=== PATIENT | female | born 1995 | race Caucasian/White ===

== ENCOUNTER 2018-02-01 08:33 | Inpatient (IN) | payer SELFPAY ==
[2018-02-01] MEDS ORDERED: Sodium Chloride 0.9% 2.5 ML Syringe FLUSH PRN (08:52)
[2018-02-01] MEDS ORDERED: Water For Irrigation,Sterile 1,000 ML Container IRR PRN (08:52)
[2018-02-01] MEDS ORDERED: Tranexamic Acid 1,000 MG in Sodium Chloride 0.9% 100 ML IV PRN (08:52)
[2018-02-01] MEDS ORDERED: Methylergonovine 0.2 MG/1 ML Amp IM PRN (08:52)
[2018-02-01] MEDS ORDERED: Misoprostol 200 MCG Tab PO PRN (08:52)
[2018-02-01] MEDS ORDERED: Carboprost Tromethamine 250 MCG/1 ML Amp IM PRN (08:52)
[2018-02-01] MEDS ORDERED: Lidocaine 1% 50 ML MDV INJECT PRN (08:52)
[2018-02-01] MEDS ORDERED: Butorphanol 1 MG/ML SDV IVPUSH PRN (08:52)
[2018-02-01] MEDS ORDERED: Nalbuphine 10 MG/ML 10 ML MDV IVPUSH PRN (08:52)
[2018-02-01] MEDS ORDERED: Sodium Chloride 0.9% 10 ML Syringe FLUSH PRN (08:52)
[2018-02-01] MEDS ORDERED: Oxytocin/0.9 % Sodium Chloride 30 UNIT/500 ML BAG IV SCH (09:00)
[2018-02-01] MEDS ORDERED: Ampicillin 2 GM in Sodium Chloride 0.9% 100 ML IV ONE (09:15)
[2018-02-01] MEDS: Lactated Ringers 1,000 ML IV SCH ×3 (09:35→13:59)
[2018-02-01] MEDS ORDERED: Ropivacaine HCl/PF 100 ML ONE (11:00)
[2018-02-01] MEDS ORDERED: Ropivacaine 0.2% 2 MG/ML 20 ML SDV ONE (11:00)
--- NOTE | 2018-02-01 11:08 | PCM.PREANE ---
Preanesthetic Assessment - Anesthesia/Transfusion/Family Hx Anesthesia History: No Prior Anesthesia Transfusion History: No Prior Transfusion(s) - Review of Systems General: No Symptoms Pulmonary: No Symptoms Cardiovascular: No Symptoms Gastrointestinal: Nausea, Vomiting Neurological: No Symptoms Other: Reports: None - Physical Assessment NPO Status Date: 02/01/18 NPO Status Time: 07:00 Pulse: 94 Blood Pressure: 129/76 Temperature: 98.6 F Height: 4 ft 11 in Weight: 128 lb ASA Class: 2 Mental Status: Alert & Oriented x3 Airway Class: Mallampati = 2 ROM/Head Extension: Full Lungs: Clear to Auscultation, Normal Respiratory Effort Cardiovascular: Regular Rate, Regular Rhythm - Lab Values: Laboratory Last Values WBC 10.43 K/uL (4.0-11.0) 02/01/18 09:25 RBC 4.43 M/uL (4.30-5.90) 02/01/18 09:25 Hgb 12.7 g/dL (12.0-16.0) 02/01/18 09:25 Hct 38.0 % (36.0-46.0) 02/01/18 09:25 MCV 85.8 fL (80.0-98.0) 02/01/18 09:25 MCH 28.7 pg (27.0-32.0) 02/01/18 09:25 MCHC 33.4 g/dL (31.0-37.0) 02/01/18 09:25 RDW Std Deviation 40.7 fl (28.0-62.0) 02/01/18 09:25 RDW Coeff of Gloria 14 % (11.0-15.0) 02/01/18 09:25 Plt Count 191 K/uL (150-400) 02/01/18 09:25 MPV 10.30 fL (7.40-12.00) 02/01/18 09:25 Hemoglobin A1c 4.9 % (4.5-6.2) 02/01/18 09:25 Blood Type A POSITIVE 02/01/18 09:25 Antibody Screen NEGATIVE 02/01/18 09:25 - Allergies Allergies/Adverse Reactions: Allergies Allergy/AdvReac Type Severity Reaction Status Date / Time No Known Allergies Allergy Verified 02/01/18 09:08 - Blood Blood Available: No Product(s) Available: None - Anesthesia Plan Free Text/Narrative:: Labor Epidural - will not use any narcotic since hx of + toxicology and pt has not given a urine sample today - nurse will be collecting when bright catheter is placed 20 Ga IV placed to R Upper bicep d/t difficulty getting IV access for fluid bolus - Acknowledgements Anesthesia Type Planned: Epidural Pt an Appropriate Candidate for the Planned Anesthesia: Yes Alternatives and Risks of Anesthesia Discussed w Pt/Guardian: Yes Pt/Guardian Understands and Agrees with Anesthesia Plan: Yes PreAnesthesia Questionnaire Gastrointestinal History: Reports: GERD 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 - SUBSTANCE USE Smoking Status *Q: Never Smoker Tobacco Use Within Last Twelve Months: No Second Hand Smoke Exposure: Yes Recreational Drug Use History: Yes Recreational Drug Type: Reports: Marijuana/Hashish, Other (see below) - HOME MEDS Home Medications: Home Meds . [No Known Home Meds] 02/01/18 [History] - CURRENT (IN HOUSE) MEDS Current Meds: Current Medications Butorphanol Tartrate (Stadol) 1 mg IVPUSH Q1H PRN PRN Reason: Pain Carboprost Tromethamine (Hemabate Ds) 250 mcg IM ASDIRECTED PRN PRN Reason: Post Hemorrhage Tranexamic Acid 1,000 mg/ (Sodium Chloride) 110 mls @ 660 mls/hr IV ONETIME PRN PRN Reason: Bleeding Lactated Ringer's (Ringers, Lactated) 1,000 mls @ 150 mls/hr IV ASDIRECTED [facility] Last Admin: 02/01/18 09:35 Dose: 999 mls/hr Oxytocin/Sodium Chloride (Oxytocin 30 Unit/500 Ml-Ns) 30 unit in 500 mls @ 999 mls/hr IV TITRATE [facility] Ampicillin Sodium 1 gm/ Sodium (Chloride) 50 mls @ 100 mls/hr IV Q4H [facility] Lidocaine HCl (Xylocaine 1%) 50 ml INJECT .ONCE PRN PRN Reason: Laceration repair Methylergonovine Maleate (Methergine) 0.2 mg IM ASDIRECTED PRN PRN Reason: Post Hemorrhage Misoprostol (Cytotec) 200 mcg PO .ONCE PRN PRN Reason: Post Hemorrhage Nalbuphine HCl (Nubain) 10 mg IVPUSH Q1H PRN PRN Reason: Pain (severe 7-10) Sodium Chloride (Saline Flush) 10 ml FLUSH ASDIRECTED PRN PRN Reason: Keep Vein Open Sodium Chloride (Saline Flush) 2.5 ml FLUSH ASDIRECTED PRN PRN Reason: Keep Vein Open Sterile Water (Sterile Water For Irrigation) 1,000 ml IRR ASDIRECTED PRN PRN Reason: delivery Discontinued Medications Ampicillin Sodium 2 gm/ Sodium (Chloride) 100 mls @ 200 mls/hr IV ONETIME ONE Stop: 02/01/18 09:44 Last Admin: 02/01/18 09:40 Dose: 200 mls/hr Ropivacaine (Naropin 0.2%) Confirm Administered Dose 100 mls @ as directed .ROUTE .STK-MED ONE Stop: 02/01/18 11:01 Ropivacaine (Naropin 0.2%) Confirm Administered Dose 20 ml .ROUTE .STK-MED ONE Stop: 02/01/18 11:01
[2018-02-01] MEDS ORDERED: Ampicillin 1 GM in Sodium Chloride 0.9% 50 ML IV SCH (13:15)
--- NOTE | 2018-02-01 15:21 | PCM.DEL ---
L & D Note - General Info Date of Service: 02/01/18 - Delivery Note Labor: Spontaneous Delivery Outcome: Livebirth Delivery Mode: Vacuum Extraction Presentation: Left Occiput Anterior (GARO) Anesthesia Type: Epidural Laceration: 1st Degree, Vaginal Suture type: Vicryl Suture size: 3-0 Placenta: Intact, Spontaneous Cord: 3 Vessels Score 1 min: 8 Score 5 min: 9 Delivery Comments (Free Text/Narrative):: Dictation [id number] - General Info Date of Service: 02/01/18 - Patient Data Vitals - Most Recent: Last Vital Signs Temp 37.0 C 02/01/18 11:08 Pulse 94 02/01/18 11:08 Resp BP 129/76 02/01/18 11:08 Pulse Ox Weight - Most Recent: 58.06 kg Lab Results Last 24 Hours: Laboratory Results - last 24 hr 02/01/18 02/01/18 02/01/18 Range/Units 09:25 09:25 09:25 WBC 10.43 (4.0-11.0) K/uL RBC 4.43 (4.30-5.90) M/uL Hgb 12.7 (12.0-16.0) g/dL Hct 38.0 (36.0-46.0) % MCV 85.8 (80.0-98.0) fL MCH 28.7 (27.0-32.0) pg MCHC 33.4 (31.0-37.0) g/dL RDW Std Deviation 40.7 (28.0-62.0) fl RDW Coeff of Gloria 14 (11.0-15.0) % Plt Count 191 (150-400) K/uL MPV 10.30 (7.40-12.00) fL Hemoglobin A1c 4.9 (4.5-6.2) % Urine Opiates Screen (NEGATIVE) Ur Oxycodone Screen (NEGATIVE) Urine Methadone Screen (NEGATIVE) Ur Barbiturates Screen (NEGATIVE) Ur Phencyclidine Scrn (NEGATIVE) Ur Amphetamine Screen (NEGATIVE) U Methamphetamines Scrn (NEGATIVE) U Benzodiazepines Scrn (NEGATIVE) U Cocaine Metab Screen (NEGATIVE) U Marijuana (THC) Screen (NEGATIVE) Blood Type A POSITIVE Antibody Screen NEGATIVE 02/01/18 Range/Units 11:39 WBC (4.0-11.0) K/uL RBC (4.30-5.90) M/uL Hgb (12.0-16.0) g/dL Hct (36.0-46.0) % MCV (80.0-98.0) fL MCH (27.0-32.0) pg MCHC (31.0-37.0) g/dL RDW Std Deviation (28.0-62.0) fl RDW Coeff of Gloria (11.0-15.0) % Plt Count (150-400) K/uL MPV (7.40-12.00) fL Hemoglobin A1c (4.5-6.2) % Urine Opiates Screen POSITIVE (NEGATIVE) Ur Oxycodone Screen NEGATIVE (NEGATIVE) Urine Methadone Screen NEGATIVE (NEGATIVE) Ur Barbiturates Screen NEGATIVE (NEGATIVE) Ur Phencyclidine Scrn NEGATIVE (NEGATIVE) Ur Amphetamine Screen NEGATIVE (NEGATIVE) U Methamphetamines Scrn NEGATIVE (NEGATIVE) U Benzodiazepines Scrn NEGATIVE (NEGATIVE) U Cocaine Metab Screen NEGATIVE (NEGATIVE) U Marijuana (THC) Screen NEGATIVE (NEGATIVE) Blood Type Antibody Screen Med Orders - Current: Current Medications Butorphanol Tartrate (Stadol) 1 mg IVPUSH Q1H PRN PRN Reason: Pain Carboprost Tromethamine (Hemabate Ds) 250 mcg IM ASDIRECTED PRN PRN Reason: Post Hemorrhage Tranexamic Acid 1,000 mg/ (Sodium Chloride) 110 mls @ 660 mls/hr IV ONETIME PRN PRN Reason: Bleeding Lactated Ringer's (Ringers, Lactated) 1,000 mls @ 150 mls/hr IV ASDIRECTED [facility] Last Admin: 02/01/18 13:59 Dose: 150 mls/hr Oxytocin/Sodium Chloride (Oxytocin 30 Unit/500 Ml-Ns) 30 unit in 500 mls @ 999 mls/hr IV TITRATE [facility] Ampicillin Sodium 1 gm/ Sodium (Chloride) 50 mls @ 100 mls/hr IV Q4H [facility] Last Admin: 02/01/18 14:00 Dose: 100 mls/hr Lidocaine HCl (Xylocaine 1%) 50 ml INJECT .ONCE PRN PRN Reason: Laceration repair Methylergonovine Maleate (Methergine) 0.2 mg IM ASDIRECTED PRN PRN Reason: Post Hemorrhage Misoprostol (Cytotec) 200 mcg PO .ONCE PRN PRN Reason: Post Hemorrhage Nalbuphine HCl (Nubain) 10 mg IVPUSH Q1H PRN PRN Reason: Pain (severe 7-10) Sodium Chloride (Saline Flush) 10 ml FLUSH ASDIRECTED PRN PRN Reason: Keep Vein Open Sodium Chloride (Saline Flush) 2.5 ml FLUSH ASDIRECTED PRN PRN Reason: Keep Vein Open Sterile Water (Sterile Water For Irrigation) 1,000 ml IRR ASDIRECTED PRN PRN Reason: delivery Discontinued Medications Ampicillin Sodium 2 gm/ Sodium (Chloride) 100 mls @ 200 mls/hr IV ONETIME ONE Stop: 02/01/18 09:44 Last Admin: 02/01/18 09:40 Dose: 200 mls/hr Ropivacaine (Naropin 0.2%) Confirm Administered Dose 100 mls @ as directed .ROUTE .STK-MED ONE Stop: 02/01/18 11:01 Ropivacaine (Naropin 0.2%) Confirm Administered Dose 20 ml .ROUTE .STK-MED ONE Stop: 02/01/18 11:01 - Problem List Review Problem List Initiated/Reviewed/Updated: Yes - My Orders Last 24 Hours: My Active Orders 02/01/18 08:52 Patient Status [ADT] Routine May Shower [RC] ASDIRECTED Notify Provider [RC] PRN Up ad Krystin [RC] ASDIRECTED Butorphanol [Stadol] 1 mg IVPUSH Q1H PRN Carboprost Tromethamine [Hemabate DS] 250 mcg IM ASDIRECTED PRN Lidocaine 1% [Xylocaine 1%] 50 ml INJECT .ONCE PRN Methylergonovine [Methergine] 0.2 mg IM ASDIRECTED PRN Misoprostol [Cytotec] 200 mcg PO .ONCE PRN Nalbuphine [Nubain] 10 mg IVPUSH Q1H PRN Sodium Chloride 0.9% [Saline Flush] 10 ml FLUSH ASDIRECTED PRN Sodium Chloride 0.9% [Saline Flush] 2.5 ml FLUSH ASDIRECTED PRN Tranexamic Acid [Cyklokapron] 1,000 mg Sodium Chloride 0.9% [Normal Saline] 100 ml IV ONETIME Water For Irrigation,Sterile [Sterile Water for Irrigation] 1,000 ml IRR ASDIRECTED PRN Scalp Electrode [WOMSER] Per Unit Routine Peripheral IV Insertion Adult [OM.PC] Routine 02/01/18 09:00 GBS [CULTURE GROUP B STREP] [RM] Routine Lactated Ringers [Ringers, Lactated] 1,000 ml IV ASDIRECTED Oxytocin/0.9 % Sodium Chloride [Oxytocin 30 Unit/500 ML-NS] 30 unit in 500 ml IV TITRATE 02/01/18 09:16 Consult to Commercial Management Accountant [CONS] Routine 02/01/18 13:15 Ampicillin 1 gm Sodium Chloride 0.9% [Normal Saline] 50 ml IV Q4H
[2018-02-01] MEDS ORDERED: Ibuprofen 400 MG Tab PO PRN (15:25)
[2018-02-01] MEDS ORDERED: Docusate Sodium 100 MG Cap PO PRN (15:25)
[2018-02-01] MEDS ORDERED: Benzocaine/Menthol 20%-0.5% Spray 78 GM Cannister TOP PRN (15:25)
[2018-02-01] MEDS ORDERED: Lanolin 100% Cream 7 GM Tube TOP PRN (15:25)
[2018-02-01] MEDS ORDERED: Aluminum Hydroxide/Magnesium Hydroxide/Simethicone Susp 30 ML Cup PO PRN (15:25)
[2018-02-01] MEDS ORDERED: Bisacodyl 10 MG Supp RECTAL PRN (15:25)
[2018-02-01] MEDS ORDERED: Witch Hazel Medicated Pads 40/Jar TOP PRN (15:25)
[2018-02-01] MEDS ORDERED: oxyCODONE 5 MG Tab PO PRN (15:25)
[2018-02-01] MEDS ORDERED: Acetaminophen 500 MG Tab PO PRN ×2 (15:25)
--- NOTE | 2018-02-01 18:23 | OR ---
SURGEON: Ofelia Escalante M.D. DATE OF PROCEDURE: 02/01/2018 PREOPERATIVE DIAGNOSES: 1. 39 and 2 week intrauterine . 2. Active labor. 3. Limited care. 4. Group B strep unknown. 5. UDS positive for opiates. 6. bradycardia. POSTOPERATIVE DIAGNOSES: 1. 39 and 2 week intrauterine . 2. Active labor. 3. Limited care. 4. Group B strep unknown. 5. UDS positive for opiates. 6. bradycardia. PROCEDURE: Vacuum-assisted vaginal delivery with first-degree right-sided vaginal laceration repair. ESTIMATED BLOOD LOSS: 300 mL. ANESTHESIA: Epidural. FINDINGS: Viable male, scores 8 at 1 minute, 9 at 5 minutes, weight is pending. Spontaneous delivery, intact placenta, three-vessel cord, clear amniotic fluid. DISPOSITION: The patient in LDRP, infant to nursery. PROCEDURE IN DETAIL: Ofelia is a 22-year-old primigravida at 39 and 2 weeks' gestation, who presents this morning with regular contractions at 6:30 a.m. She presented shortly after 8:30 a.m. She was found to be 5 cm, 90% effaced, zero station, cephalic presentation. The patient had very limited care. She had a visit at 7 weeks and 25 weeks gestational age. She did have labs and ultrasounds done at this visit however. She has group beta strep unknown. Her 50 g glucose tolerance test was elevated at 158. The patient was admitted and routine labs were drawn as well as urine drug screen and a glycosylated hemoglobin. The patient underwent IV hydration, was requested regional anesthesia from epidural, underwent this satisfactorily, became more comfortable, continued to progress. She received ampicillin prophylaxis for group B beta strep unknown. Group B beta strep culture is pending. heart tones were in the 130s with variability. The patient progressed through the early afternoon, had spontaneous rupture of membranes. At approximately 1:00 p.m., clear fluid was noted. At approximately 3:00 p.m., the patient was found to be complete, 100% effaced, and +3 station with recurrent prolonged variable deceleration to the 80s. She was placed in knee-chest position and presented for delivery. Upon my arrival, heart tones were back in the 110 to 120s. The patient was placed in modified dorsal lithotomy position, was prepped and draped in the usual aseptic manner. Began pushing efforts, was able to deliver to +4 station. However, the heart tones were in the 70s to 80s and were not returning to baseline. Therefore, discussed with Ofelia the possibility of proceeding with vacuum-assisted vaginal delivery. The fetus is GARO. Estimated weight is 3000 g. Bladder has been drained. sutures were palpated. The patient's fetus felt to be GARO with a sagittal midline, posteriorly palpated. Risks of procedure discussed with her including the possibility for increased risk due to mother for a vaginal laceration for a for scalp bruising and more rarely intracranial bleeding. The patient and father of the baby voiced her understanding and agreed to proceed with vacuum-assisted vaginal delivery. Therefore, Mityvac was gently placed after palpating suture lines, with the next contraction, was able to insufflate to the green zone. With pressure applied, was able to deliver infant's head atraumatically, spontaneously, vacuum was released. The anterior shoulder push, remaining body was delivered without difficulty. The 's oropharynx and nares bulb suctioned. Infant had good tone, began crying spontaneously. The oropharynx and nares bulb suctioned, cord was clamped x2 and cut. Infant was handed off to attending physician, Dr. Kaminski. Cord arterial, cord venous, cord blood sampling obtained. Light pressure was applied while the placenta was delivered spontaneously intact. Vigorous fundal uterine massage was then applied while 30 units of Pitocin delivered in 500 mL of IV fluid. Upon inspection of cervix, vaginal sidewalls, and perineum, there was found to be a right vaginal laceration, first-degree, was repaired using 3-0 Vicryl in the usual fashion. Hemostasis appeared evident. Sponge count and needle count were correct. The patient tolerated the procedure well. She will remain in LDRP. Infant in nursery. KATHY / CHACHA /[id number] DESIREE
--- NOTE | 2018-02-02 06:25 | PCM48HPAN ---
Post Anesthesia Note - EVALUATION WITHIN 48HRS OF ANESTHETIC Vital Signs in Normal Range: Yes Patient Participated in Evaluation: Yes Respiratory Function Stable: Yes Airway Patent: Yes Cardiovascular Function Stable: Yes Hydration Status Stable: Yes Pain Control Satisfactory: Yes Nausea and Vomiting Control Satisfactory: Yes Mental Status Recovered: Yes Pulse Rate: 94 Resp Rate: 18 Temperature: 98.6 F Blood Pressure: 129/76
--- NOTE | 2018-02-02 07:51 | PCM.PNPP ---
- General Info Date of Service: 02/02/18 Functional Status: Reports: Pain Controlled, Tolerating Diet, Ambulating, Urinating - Review of Systems General: Reports: Fatigue. Denies: Fever, Weakness Pulmonary: Denies: Shortness of Breath Cardiovascular: Denies: Chest Pain, Palpitations, Lightheadedness Gastrointestinal: Reports: Flatus. Denies: Nausea, Vomiting Genitourinary: Denies: Flank Pain Skin: Reports: No Symptoms Psychiatric: Reports: No Symptoms - General Info Date of Service: 02/02/18 - Patient Data Vital Signs - Most Recent: Last Vital Signs Temp 37.0 C 02/02/18 06:25 Pulse 94 02/02/18 06:25 Resp 18 02/02/18 06:25 BP 129/76 02/02/18 06:25 Pulse Ox 96 02/02/18 04:36 Weight - Most Recent: 58.06 kg Lab Results - Last 24 Hours: Laboratory Results - last 24 hr 02/01/18 02/01/18 02/01/18 Range/Units 09:25 09:25 09:25 WBC 10.43 (4.0-11.0) K/uL RBC 4.43 (4.30-5.90) M/uL Hgb 12.7 (12.0-16.0) g/dL Hct 38.0 (36.0-46.0) % MCV 85.8 (80.0-98.0) fL MCH 28.7 (27.0-32.0) pg MCHC 33.4 (31.0-37.0) g/dL RDW Std Deviation 40.7 (28.0-62.0) fl RDW Coeff of Gloria 14 (11.0-15.0) % Plt Count 191 (150-400) K/uL MPV 10.30 (7.40-12.00) fL Cord ABG pH (7.18-7.38) Cord ABG Base Excess (-10--2) Cord VBG pH (7.25-7.45) Cord VBG Base Excess (-10--2) Hemoglobin A1c 4.9 (4.5-6.2) % Urine Opiates Screen (NEGATIVE) Ur Oxycodone Screen (NEGATIVE) Urine Methadone Screen (NEGATIVE) Ur Barbiturates Screen (NEGATIVE) Ur Phencyclidine Scrn (NEGATIVE) Ur Amphetamine Screen (NEGATIVE) U Methamphetamines Scrn (NEGATIVE) U Benzodiazepines Scrn (NEGATIVE) U Cocaine Metab Screen (NEGATIVE) U Marijuana (THC) Screen (NEGATIVE) Blood Type A POSITIVE Antibody Screen NEGATIVE 02/01/18 02/01/18 02/02/18 Range/Units 11:39 14:54 05:22 WBC (4.0-11.0) K/uL RBC (4.30-5.90) M/uL Hgb 9.6 L (12.0-16.0) g/dL Hct 29.0 L (36.0-46.0) % MCV (80.0-98.0) fL MCH (27.0-32.0) pg MCHC (31.0-37.0) g/dL RDW Std Deviation (28.0-62.0) fl RDW Coeff of Gloria (11.0-15.0) % Plt Count (150-400) K/uL MPV (7.40-12.00) fL Cord ABG pH 7.276 (7.18-7.38) Cord ABG Base Excess -3 (-10--2) Cord VBG pH 7.295 (7.25-7.45) Cord VBG Base Excess -3 (-10--2) Hemoglobin A1c (4.5-6.2) % Urine Opiates Screen POSITIVE (NEGATIVE) Ur Oxycodone Screen NEGATIVE (NEGATIVE) Urine Methadone Screen NEGATIVE (NEGATIVE) Ur Barbiturates Screen NEGATIVE (NEGATIVE) Ur Phencyclidine Scrn NEGATIVE (NEGATIVE) Ur Amphetamine Screen NEGATIVE (NEGATIVE) U Methamphetamines Scrn NEGATIVE (NEGATIVE) U Benzodiazepines Scrn NEGATIVE (NEGATIVE) U Cocaine Metab Screen NEGATIVE (NEGATIVE) U Marijuana (THC) Screen NEGATIVE (NEGATIVE) Blood Type Antibody Screen Med Orders - Current: Current Medications Acetaminophen (Tylenol Extra Strength) 500 mg PO Q4H PRN PRN Reason: Pain Acetaminophen (Tylenol Extra Strength) 1,000 mg PO Q4H PRN PRN Reason: Pain Last Admin: 02/02/18 00:39 Dose: 1,000 mg Al Hydroxide/Mg Hydroxide (Mag-Al Plus) 30 ml PO Q8H PRN PRN Reason: Heartburn Benzocaine/Menthol (Dermoplast Pain Relief 20%-0.5% [place]) 78 gm TOP ASDIRECTED PRN PRN Reason: Perineal Comfort Measure Bisacodyl (Dulcolax) 10 mg RECTAL .ONCE PRN PRN Reason: Constipation Carboprost Tromethamine (Hemabate Ds) 250 mcg IM ASDIRECTED PRN PRN Reason: Post Hemorrhage Docusate Sodium (Colace) 100 mg PO BID PRN PRN Reason: Constipation Emollient Ointment (Lansinoh Hpa) 0 gm TOP ASDIRECTED PRN PRN Reason: Sore Nipples Tranexamic Acid 1,000 mg/ (Sodium Chloride) 110 mls @ 660 mls/hr IV ONETIME PRN PRN Reason: Bleeding Lactated Ringer's (Ringers, Lactated) 1,000 mls @ 150 mls/hr IV ASDIRECTED [facility] Last Admin: 02/01/18 13:59 Dose: 150 mls/hr Oxytocin/Sodium Chloride (Oxytocin 30 Unit/500 Ml-Ns) 30 unit in 500 mls @ 999 mls/hr IV TITRATE [facility] Ibuprofen (Motrin) 400 mg PO Q4H PRN PRN Reason: Pain Ibuprofen (Motrin) 800 mg PO Q6H PRN PRN Reason: Pain Lidocaine HCl (Xylocaine 1%) 50 ml INJECT .ONCE PRN PRN Reason: Laceration repair Methylergonovine Maleate (Methergine) 0.2 mg IM ASDIRECTED PRN PRN Reason: Post Hemorrhage Misoprostol (Cytotec) 200 mcg PO .ONCE PRN PRN Reason: Post Hemorrhage Oxycodone HCl (Oxycodone) 5 mg PO Q2H PRN PRN Reason: Pain Sodium Chloride (Saline Flush) 10 ml FLUSH ASDIRECTED PRN PRN Reason: Keep Vein Open Sodium Chloride (Saline Flush) 2.5 ml FLUSH ASDIRECTED PRN PRN Reason: Keep Vein Open Witch Akanksha (Tucks) 1 pad TOP ASDIRECTED PRN PRN Reason: comfort care Discontinued Medications Butorphanol Tartrate (Stadol) 1 mg IVPUSH Q1H PRN PRN Reason: Pain Ampicillin Sodium 2 gm/ Sodium (Chloride) 100 mls @ 200 mls/hr IV ONETIME ONE Stop: 02/01/18 09:44 Last Admin: 02/01/18 09:40 Dose: 200 mls/hr Ampicillin Sodium 1 gm/ Sodium (Chloride) 50 mls @ 100 mls/hr IV Q4H [facility] Last Admin: 02/01/18 14:00 Dose: 100 mls/hr Ropivacaine (Naropin 0.2%) Confirm Administered Dose 100 mls @ as directed .ROUTE .STK-MED ONE Stop: 02/01/18 11:01 Nalbuphine HCl (Nubain) 10 mg IVPUSH Q1H PRN PRN Reason: Pain (severe 7-10) Ropivacaine (Naropin 0.2%) Confirm Administered Dose 20 ml .ROUTE .STK-MED ONE Stop: 02/01/18 11:01 Sterile Water (Sterile Water For Irrigation) 1,000 ml IRR ASDIRECTED PRN PRN Reason: delivery - Infant Interaction Infant Disposition, : [place] in Room with Family Support Person: Mother - Recovery Exam Fundal Tone: Firm Fundal Level: At Umbilicus Fundal Placement: Midline Lochia Amount: Scant Lochia Color: Rubra/Red Perineum Description: Intact, Minimal Bruising/Swelling Bladder Status: Voiding Urinary Elimination: Voided - Exam General: Alert, Oriented Lungs: Normal Respiratory Effort Cardiovascular: Regular Rate, Regular Rhythm GI/Abdominal Exam: Normal Bowel Sounds, Soft Extremities: Pedal Edema (trace). No: Toney's Sign Skin: Warm, Dry, Intact Psy/Mental Status: Alert, Normal Affect, Normal Mood - Problem List & Annotations (1) Vacuum extraction, delivered, current hospitalization SNOMED Code(s): 949783483 Code(s): O66.5 - ATTEMPTED APPLICATION OF VACUUM EXTRACTOR AND FORCEPS Status: Acute Current Visit: Yes - Problem List Review Problem List Initiated/Reviewed/Updated: Yes - My Orders Last 24 Hours: My Active Orders 02/01/18 08:52 Patient Status [ADT] Routine May Shower [RC] ASDIRECTED Notify Provider [RC] PRN Up ad Krystin [RC] ASDIRECTED Carboprost Tromethamine [Hemabate DS] 250 mcg IM ASDIRECTED PRN Lidocaine 1% [Xylocaine 1%] 50 ml INJECT .ONCE PRN Methylergonovine [Methergine] 0.2 mg IM ASDIRECTED PRN Misoprostol [Cytotec] 200 mcg PO .ONCE PRN Sodium Chloride 0.9% [Saline Flush] 10 ml FLUSH ASDIRECTED PRN Sodium Chloride 0.9% [Saline Flush] 2.5 ml FLUSH ASDIRECTED PRN Tranexamic Acid [Cyklokapron] 1,000 mg Sodium Chloride 0.9% [Normal Saline] 100 ml IV ONETIME Peripheral IV Insertion Adult [OM.PC] Routine 02/01/18 09:00 GBS [CULTURE GROUP B STREP] [RM] Routine Lactated Ringers [Ringers, Lactated] 1,000 ml IV ASDIRECTED Oxytocin/0.9 % Sodium Chloride [Oxytocin 30 Unit/500 ML-NS] 30 unit in 500 ml IV TITRATE 02/01/18 09:16 Consult to Patient Relations Specialist [CONS] Routine 02/01/18 15:25 Patient Status [ADT] Routine May Shower [RC] ASDIRECTED Up ad Krystin [RC] ASDIRECTED Vital Signs [RC] PER UNIT ROUTINE Acetaminophen [Tylenol Extra Strength] 1,000 mg PO Q4H PRN Acetaminophen [Tylenol Extra Strength] 500 mg PO Q4H PRN Alum Hydrox/Mag Hydrox/Simeth [Mag-Al Plus] 30 ml PO Q8H PRN Benzocaine/Menthol [Dermoplast Pain Relief 20%-0.5% [place]] 78 gm TOP ASDIRECTED PRN Bisacodyl [Dulcolax] 10 mg RECTAL .ONCE PRN Docusate Sodium [Colace] 100 mg PO BID PRN Ibuprofen [Motrin] 400 mg PO Q4H PRN Ibuprofen [Motrin] 800 mg PO Q6H PRN Lanolin [Lansinoh HPA] See Dose Instructions TOP ASDIRECTED PRN Witch Akanksha [Tucks] 1 pad TOP ASDIRECTED PRN oxyCODONE 5 mg PO Q2H PRN Assess Lochia [WOMSER] Per Unit Routine Assess Uterine Involution [WOMSER] Per Unit Routine Peripheral IV Discontinue [OM.PC] Routine 02/01/18 15:26 Ice Therapy [OM.PC] Per Unit Routine Perineal Care [OM.PC] Per Unit Routine Sitz Bath [OM.PC] Per Unit Routine 02/01/18 Dinner Regular Diet [DIET] - Assessment Assessment:: PPD 1 status post VAVD Opioid abuse/dependence - Plan Plan:: Monitor today, VS and labs are stable. She has very few withdrawal symptoms at this point, mostly difficulty sleeping. SS have been consulted. Patient is open to evaluation and potential treatment for opioid dependence. Continue PP cares.
[2018-02-02] MEDS: Ibuprofen 800 MG Tab PO PRN (12:49)
[2018-02-03] MEDS: Ibuprofen 800 MG Tab PO PRN (08:57)
--- NOTE | 2018-02-03 09:30 | PCM.PNPP ---
- General Info Date of Service: 02/03/18 Functional Status: Reports: Pain Controlled, Tolerating Diet, Ambulating, Urinating - Review of Systems General: Denies: Fever, Weakness, Fatigue Pulmonary: Denies: Shortness of Breath Cardiovascular: Denies: Chest Pain, Palpitations, Lightheadedness Gastrointestinal: Denies: Abdominal Pain, Nausea, Vomiting Genitourinary: Denies: Flank Pain Psychiatric: Reports: No Symptoms - General Info Date of Service: 02/03/18 - Patient Data Vital Signs - Most Recent: Last Vital Signs Temp 36.6 C 02/03/18 08:00 Pulse 68 02/03/18 08:00 Resp 18 02/03/18 08:00 BP 112/80 02/03/18 08:00 Pulse Ox 98 02/03/18 08:00 Weight - Most Recent: 58.06 kg Med Orders - Current: Current Medications Acetaminophen (Tylenol Extra Strength) 500 mg PO Q4H PRN PRN Reason: Pain Acetaminophen (Tylenol Extra Strength) 1,000 mg PO Q4H PRN PRN Reason: Pain Last Admin: 02/02/18 00:39 Dose: 1,000 mg Al Hydroxide/Mg Hydroxide (Mag-Al Plus) 30 ml PO Q8H PRN PRN Reason: Heartburn Benzocaine/Menthol (Dermoplast Pain Relief 20%-0.5% [place]) 78 gm TOP ASDIRECTED PRN PRN Reason: Perineal Comfort Measure Last Admin: 02/03/18 09:01 Dose: 1 canister Bisacodyl (Dulcolax) 10 mg RECTAL .ONCE PRN PRN Reason: Constipation Carboprost Tromethamine (Hemabate Ds) 250 mcg IM ASDIRECTED PRN PRN Reason: Post Hemorrhage Docusate Sodium (Colace) 100 mg PO BID PRN PRN Reason: Constipation Emollient Ointment (Lansinoh Hpa) 0 gm TOP ASDIRECTED PRN PRN Reason: Sore Nipples Last Admin: 02/03/18 08:58 Dose: 1 tube Tranexamic Acid 1,000 mg/ (Sodium Chloride) 110 mls @ 660 mls/hr IV ONETIME PRN PRN Reason: Bleeding Lactated Ringer's (Ringers, Lactated) 1,000 mls @ 150 mls/hr IV ASDIRECTED BRISEIDA Last Admin: 02/01/18 13:59 Dose: 150 mls/hr Oxytocin/Sodium Chloride (Oxytocin 30 Unit/500 Ml-Ns) 30 unit in 500 mls @ 999 mls/hr IV TITRATE [facility] Ibuprofen (Motrin) 400 mg PO Q4H PRN PRN Reason: Pain Ibuprofen (Motrin) 800 mg PO Q6H PRN PRN Reason: Pain Last Admin: 02/03/18 08:57 Dose: 800 mg Lidocaine HCl (Xylocaine 1%) 50 ml INJECT .ONCE PRN PRN Reason: Laceration repair Methylergonovine Maleate (Methergine) 0.2 mg IM ASDIRECTED PRN PRN Reason: Post Hemorrhage Misoprostol (Cytotec) 200 mcg PO .ONCE PRN PRN Reason: Post Hemorrhage Oxycodone HCl (Oxycodone) 5 mg PO Q2H PRN PRN Reason: Pain Sodium Chloride (Saline Flush) 10 ml FLUSH ASDIRECTED PRN PRN Reason: Keep Vein Open Sodium Chloride (Saline Flush) 2.5 ml FLUSH ASDIRECTED PRN PRN Reason: Keep Vein Open Witch Akanksha (Tucks) 1 pad TOP ASDIRECTED PRN PRN Reason: comfort care Last Admin: 02/03/18 09:02 Dose: 1 tub Discontinued Medications Butorphanol Tartrate (Stadol) 1 mg IVPUSH Q1H PRN PRN Reason: Pain Ampicillin Sodium 2 gm/ Sodium (Chloride) 100 mls @ 200 mls/hr IV ONETIME ONE Stop: 02/01/18 09:44 Last Admin: 02/01/18 09:40 Dose: 200 mls/hr Ampicillin Sodium 1 gm/ Sodium (Chloride) 50 mls @ 100 mls/hr IV Q4H [facility] Last Admin: 02/01/18 14:00 Dose: 100 mls/hr Ropivacaine (Naropin 0.2%) Confirm Administered Dose 100 mls @ as directed .ROUTE .STK-MED ONE Stop: 02/01/18 11:01 Last Admin: 02/02/18 11:11 Dose: Not Given Nalbuphine HCl (Nubain) 10 mg IVPUSH Q1H PRN PRN Reason: Pain (severe 7-10) Ropivacaine (Naropin 0.2%) Confirm Administered Dose 20 ml .ROUTE .STK-MED ONE Stop: 02/01/18 11:01 Last Admin: 02/02/18 11:10 Dose: Not Given Sterile Water (Sterile Water For Irrigation) 1,000 ml IRR ASDIRECTED PRN PRN Reason: delivery - Infant Interaction Infant Disposition, : in Room with Family Support Person: Mother - Recovery Exam Fundal Tone: Firm Fundal Level: At Umbilicus Fundal Placement: Midline Lochia Amount: Scant Lochia Color: Rubra/Red Perineum Description: Other (see below) Other Perinuem Description: 1st degree laceration Episiotomy/Laceration: Approximated Bladder Status: Voiding Urinary Elimination: Voided - Exam General: Alert, Oriented Lungs: Normal Respiratory Effort Cardiovascular: Regular Rate, Regular Rhythm GI/Abdominal Exam: Normal Bowel Sounds, Soft Extremities: Pedal Edema (trace). No: Toney's Sign Skin: Warm, Dry, Intact Neurological: No New Focal Deficit Psy/Mental Status: Alert - Problem List & Annotations (1) Vacuum extraction, delivered, current hospitalization SNOMED Code(s): 305602699 Code(s): O66.5 - ATTEMPTED APPLICATION OF V[employer]UM [employer] Status: Acute Current Visit: Yes - Problem List Review Problem List Initiated/Reviewed/Updated: Yes - My Orders Last 24 Hours: My Active Orders 02/03/18 09:26 Ready for Discharge [RC] PER UNIT ROUTINE - Assessment Assessment:: PPD 2 status post VAVD Opioid abuse/dependence - Plan Plan:: Patient is doing well and feels ready to go home. is going well Discharge to home today. Follow up at [address] Aponte Pelvic rest for 6 weeks, continue PNV daily. Infection and bleeding warnings reviewed will receive follow up for hand anomaly with pediatrics Patient has made plan and follow up with director of social media marketing regarding substance abuse/dependence
== END 2018-02-03 13:00 | disposition home or self-care (01) | DRG 775 ==
LOC: MW.OBCHECK 08:33 → MW.OB 08:52 → OBSVTOIN 14:54 → MW.OB 20:30
PROVIDERS: ADMIT Obstetrics & Gynecology; ATTEND Obstetrics & Gynecology
PROC: 10D07Z6 Extraction of Products of Conception, Vacuum, Via Natural or Artificial Opening (ICD-10-PCS; principal; 2018-02-01)
PROC: 0HQ9XZZ Repair Perineum Skin, External Approach (ICD-10-PCS; 2018-02-01)
DX: O70.0 First degree perineal laceration during delivery (principal); O99.324 Drug use complicating childbirth; F11.20 Opioid dependence, uncomplicated; O76 Abnormality in fetal heart rate and rhythm complicating labor and delivery; O09.33 Supervision of pregnancy with insufficient antenatal care, third trimester; Z37.0 Single live birth; Z3A.39 39 weeks gestation of pregnancy
CPT/HCPCS: 36415; 59025; 59409; 80305; 82803; 83036; 85014; 85018; 85027; 86850; 86900; 86901; 87081; A9270-GY; J0290; J2795; J7030; J7050; J7120

== ENCOUNTER 2019-04-19 10:37 | Inpatient (IN) | payer SELFPAY ==
[2019-04-19] MEDS ORDERED: Sodium Chloride 0.9% 10 ML Syringe FLUSH PRN (11:27)
[2019-04-19] MEDS ORDERED: Misoprostol 200 MCG Tab PO PRN (11:27)
[2019-04-19] MEDS ORDERED: Methylergonovine 0.2 MG/1 ML Amp IM PRN (11:27)
[2019-04-19] MEDS ORDERED: Nalbuphine 10 MG/1 ML Vial IVPUSH PRN (11:27)
[2019-04-19] MEDS ORDERED: Sodium Chloride 0.9% 10 ML SDV IV PRN (11:27)
[2019-04-19] MEDS ORDERED: Tranexamic Acid 1,000 MG in Sodium Chloride 0.9% 100 ML IV PRN (11:27)
[2019-04-19] MEDS ORDERED: Sodium Chloride 0.9% 2.5 ML Syringe FLUSH PRN (11:27)
[2019-04-19] MEDS ORDERED: Carboprost Tromethamine 250 MCG/1 ML Amp IM PRN (11:27)
[2019-04-19] MEDS ORDERED: Water For Irrigation,Sterile 1,000 ML Container IRR PRN (11:27)
[2019-04-19] MEDS ORDERED: Butorphanol 1 MG/ML SDV IVPUSH PRN (11:27)
[2019-04-19] MEDS ORDERED: Lidocaine 1% 50 ML MDV INJECT PRN (11:27)
[2019-04-19] MEDS ORDERED: Oxytocin/0.9 % Sodium Chloride 30 UNIT/500 ML BAG IV SCH (11:30)
[2019-04-19] MEDS: Lactated Ringers 1,000 ML IV SCH ×2 (12:13→13:36)
[2019-04-19] MEDS ORDERED: Ropivacaine HCl/PF 100 ML ONE (13:30)
[2019-04-19] MEDS ORDERED: fentaNYL 100 MCG/2 ML SDV ONE (13:30)
--- NOTE | 2019-04-19 14:05 | PCM.PREANE ---
Preanesthetic Assessment - Anesthesia/Transfusion/Family Hx Anesthesia History: No Prior Anesthesia Family History of Anesthesia Reaction: No Transfusion History: No Prior Transfusion(s) - Physical Assessment Height: 59 cm Weight: 65.317 kg ASA Class: 1 - Lab Values: Laboratory Last Values WBC 8.71 K/uL (4.0-11.0) 04/19/19 11:51 RBC 4.52 M/uL (4.30-5.90) 04/19/19 11:51 Hgb 13.0 g/dL (12.0-16.0) 04/19/19 11:51 Hct 39.2 % (36.0-46.0) 04/19/19 11:51 MCV 86.7 fL (80.0-98.0) 04/19/19 11:51 MCH 28.8 pg (27.0-32.0) 04/19/19 11:51 MCHC 33.2 g/dL (31.0-37.0) 04/19/19 11:51 RDW Std Deviation 51.5 fl (28.0-62.0) 04/19/19 11:51 RDW Coeff of Gloria 16 % (11.0-15.0) H 04/19/19 11:51 Plt Count 163 K/uL (150-400) 04/19/19 11:51 MPV 10.50 fL (7.40-12.00) 04/19/19 11:51 Nucleated RBC % 0.0 /100WBC 04/19/19 11:51 Nucleated RBCs # 0 K/uL 04/19/19 11:51 Blood Type A POSITIVE 04/19/19 11:51 Antibody Screen NEGATIVE 04/19/19 11:51 - Allergies Allergies/Adverse Reactions: Allergies Allergy/AdvReac Type Severity Reaction Status Date / Time No Known Allergies Allergy Verified 02/01/18 09:08 - Acknowledgements Anesthesia Type Planned: Epidural Pt an Appropriate Candidate for the Planned Anesthesia: Yes Alternatives and Risks of Anesthesia Discussed w Pt/Guardian: Yes Pt/Guardian Understands and Agrees with Anesthesia Plan: Yes PreAnesthesia Questionnaire Gastrointestinal History: Reports: GERD 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 - HOME MEDS Home Medications: Home Meds B12/Levomefolate Calcium/B-6 [Folbic Rf Tablet] 1 tab PO DAILY 04/19/19 [History ] Ferrous Sulfate [Iron] 1 tab PO DAILY 04/19/19 [History] PNV95/Ferrous Fumarate/FA [ Vitamins Tablet] 1 tab PO DAILY 04/19/19 [ History] - CURRENT (IN HOUSE) MEDS Current Meds: Current Medications Butorphanol Tartrate (Stadol) 1 mg IVPUSH Q1H PRN PRN Reason: Pain Last Admin: 04/19/19 12:23 Dose: 1 mg Carboprost Tromethamine (Hemabate Ds) 250 mcg IM ASDIRECTED PRN PRN Reason: Post Hemorrhage Lactated Ringer's (Ringers, Lactated) 1,000 mls @ 150 mls/hr IV ASDIRECTED BRISEIDA Last Admin: 04/19/19 13:36 Dose: 150 mls/hr Oxytocin/Sodium Chloride (Oxytocin 30 Unit/500 Ml-Ns) 30 unit in 500 mls @ 500 mls/hr IV BOLUS BRISEIDA Tranexamic Acid 1,000 mg/ (Sodium Chloride) 110 mls @ 660 mls/hr IV ONETIME PRN PRN Reason: Bleeding Lidocaine HCl (Xylocaine 1%) 50 ml INJECT ONETIME PRN PRN Reason: Laceration repair Methylergonovine Maleate (Methergine) 0.2 mg IM ASDIRECTED PRN PRN Reason: Post Hemorrhage Misoprostol (Cytotec) 200 mcg PO ONETIME PRN PRN Reason: Post Hemorrhage Nalbuphine HCl (Nubain) 10 mg IVPUSH Q1H PRN PRN Reason: Pain (severe 7-10) Sodium Chloride (Saline Flush) 10 ml FLUSH ASDIRECTED PRN PRN Reason: Keep Vein Open Sodium Chloride (Saline Flush) 2.5 ml FLUSH ASDIRECTED PRN PRN Reason: Keep Vein Open Sodium Chloride (Normal Saline) 10 ml IV ASDIRECTED PRN PRN Reason: IV Use Sterile Water (Sterile Water For Irrigation) 1,000 ml IRR ASDIRECTED PRN PRN Reason: delivery Discontinued Medications Fentanyl (Sublimaze) Confirm Administered Dose 100 mcg .ROUTE .STK-MED ONE Stop: 04/19/19 13:31 Ropivacaine (Naropin 0.2%) Confirm Administered Dose 100 mls @ as directed .ROUTE .STK-MED ONE Stop: 04/19/19 13:31
--- NOTE | 2019-04-19 14:08 | PCM.PRNOTE ---
- Free Text/Narrative Note: Anes Note Patient requests epidural for L&D. Sitting position. Level L3-L4 midline approach. Chloraprep scrub to lumbar area. Epidural space easily achieved single attempt with ease. KOLBY at 4 cm. Epidural cahtreaded 5 cm with ease. Secured at 9 cm with sterile clear adhesive dressing. Test 1339 3 cc 1.5% lido with epi negative. 1341 Load 10 cc 0.2% ropivicaine with 1 mcg cc entanyl in slow divided doses. 1345 Pump started with same soltion at 8 cc hr with 6 cc q 20 min prn bolus. Puma well. Time with patient [phone] Gage Adames CRNA
[2019-04-19] MEDS ORDERED: Sodium Chloride 0.9% 20 ML ONE (14:13)
[2019-04-19] MEDS ORDERED: ePHEDrine 50 MG/ML SDV ONE (14:13)
[2019-04-19] MEDS ORDERED: Phenylephrine/Normal Saline 100 MCG/ML 10 ML Syringe ONE (14:13)
[2019-04-19] MEDS ORDERED: Bisacodyl 10 MG Supp RECTAL PRN (14:50)
[2019-04-19] MEDS ORDERED: Acetaminophen 500 MG Tab PO PRN (14:50)
[2019-04-19] MEDS ORDERED: Witch Hazel Medicated Pads 40/Jar TOP PRN (14:50)
[2019-04-19] MEDS ORDERED: Ondansetron 4 MG/2 ML SDV IVPUSH PRN (14:50)
[2019-04-19] MEDS ORDERED: Benzocaine/Menthol 20%-0.5% Spray 78 GM Cannister TOP PRN (14:50)
[2019-04-19] MEDS ORDERED: Docusate Sodium 100 MG Cap PO PRN (14:50)
[2019-04-19] MEDS ORDERED: oxyCODONE 5 MG Tab PO PRN (14:50)
[2019-04-19] MEDS ORDERED: Aluminum Hydroxide/Magnesium Hydroxide/Simethicone Susp 30 ML Cup PO PRN (14:50)
[2019-04-19] MEDS ORDERED: Ibuprofen 400 MG Tab PO PRN (14:50)
[2019-04-19] MEDS ORDERED: Lanolin 100% Cream 7 GM Tube TOP PRN (14:50)
--- NOTE | 2019-04-19 14:58 | PCM.OPNOTE ---
- General Post-Op/Procedure Note Date of Surgery/Procedure: 04/19/19 Operative Procedure(s): /IP Findings: Viable female APGARs 9, 9 weight pending. Spontaneous delivery intact placenta with 3V cord. Pre Op Diagnosis: 39/5 week IUP. Labor Post-Op Diagnosis: Same Anesthesia Technique: Epidural Primary Surgeon: Ofelia Escalante EBL in mLs: 300 Complications: none known Condition: Good Free Text/Narrative:: Dictation [id number]
[2019-04-19] MEDS: Ibuprofen 800 MG Tab PO PRN ×2 (15:21→21:17)
[2019-04-20] MEDS: Ibuprofen 800 MG Tab PO PRN ×2 (04:37→12:42)
[2019-04-20] MEDS: Acetaminophen 500 MG Tab PO PRN ×2 (06:25→12:41)
--- NOTE | 2019-04-20 07:32 | PCM.POSTAN ---
POST ANESTHESIA ASSESSMENT - VITAL SIGNS Vital Signs: Last Vital Signs Temp 37.2 C 04/20/19 04:30 Pulse 93 04/20/19 04:30 Resp 16 04/20/19 04:30 BP 131/72 04/20/19 04:30 Pulse Ox 97 04/20/19 04:30 - RESPIRATORY Respiratory Status: Respiratory Rate WNL - CARDIOVASCULAR CV Status: Pulse Rate WNL - GASTROINTESTINAL GI Status: No Symptoms - POST OP HYDRATION Hydration Status: Adequate & Stable
--- NOTE | 2019-04-20 07:32 | PCM48HPAN ---
Post Anesthesia Note - EVALUATION WITHIN 48HRS OF ANESTHETIC Vital Signs in Normal Range: Yes Patient Participated in Evaluation: Yes Respiratory Function Stable: Yes Airway Patent: Yes Cardiovascular Function Stable: Yes Hydration Status Stable: Yes Pain Control Satisfactory: Yes Nausea and Vomiting Control Satisfactory: Yes Mental Status Recovered: Yes Vital Signs: Last Vital Signs Temp 37.2 C 04/20/19 04:30 Pulse 93 04/20/19 04:30 Resp 16 04/20/19 04:30 BP 131/72 04/20/19 04:30 Pulse Ox 97 04/20/19 04:30
--- NOTE | 2019-04-20 10:21 | PCM.PNPP ---
- General Info Date of Service: 04/20/19 Functional Status: Reports: Pain Controlled, Tolerating Diet, Ambulating, Urinating - Review of Systems General: Reports: Fatigue. Denies: Fever, Weakness Pulmonary: Reports: No Symptoms Cardiovascular: Reports: No Symptoms, Lightheadedness Gastrointestinal: Denies: Abdominal Pain, Nausea, Vomiting Genitourinary: Denies: Flank Pain Musculoskeletal: Reports: No Symptoms Skin: Reports: No Symptoms Neurological: Reports: No Symptoms Psychiatric: Reports: No Symptoms - General Info Date of Service: 04/20/19 - Patient Data Vital Signs - Most Recent: Last Vital Signs Temp 37.0 C 04/20/19 09:30 Pulse 83 04/20/19 09:30 Resp 12 04/20/19 09:30 BP 102/58 L 04/20/19 09:30 Pulse Ox 98 04/20/19 09:30 Weight - Most Recent: 65.317 kg Lab Results - Last 24 Hours: Laboratory Results - last 24 hr 04/19/19 04/19/19 04/19/19 Range/Units 11:51 11:51 14:30 WBC 8.71 (4.0-11.0) K/uL RBC 4.52 (4.30-5.90) M/uL Hgb 13.0 (12.0-16.0) g/dL Hct 39.2 (36.0-46.0) % MCV 86.7 (80.0-98.0) fL MCH 28.8 (27.0-32.0) pg MCHC 33.2 (31.0-37.0) g/dL RDW Std Deviation 51.5 (28.0-62.0) fl RDW Coeff of Gloria 16 H (11.0-15.0) % Plt Count 163 (150-400) K/uL MPV 10.50 (7.40-12.00) fL Nucleated RBC % 0.0 /100WBC Nucleated RBCs # 0 K/uL Cord ABG pH 7.376 (7.18-7.38) Cord ABG Base Excess -3 (-10--2) Cord VBG pH 7.311 (7.25-7.45) Cord VBG Base Excess -6 (-10--2) Blood Type A POSITIVE Antibody Screen NEGATIVE 04/20/19 Range/Units 06:03 WBC (4.0-11.0) K/uL RBC (4.30-5.90) M/uL Hgb 10.6 L (12.0-16.0) g/dL Hct 32.8 L (36.0-46.0) % MCV (80.0-98.0) fL MCH (27.0-32.0) pg MCHC (31.0-37.0) g/dL RDW Std Deviation (28.0-62.0) fl RDW Coeff of Gloria (11.0-15.0) % Plt Count (150-400) K/uL MPV (7.40-12.00) fL Nucleated RBC % /100WBC Nucleated RBCs # K/uL Cord ABG pH (7.18-7.38) Cord ABG Base Excess (-10--2) Cord VBG pH (7.25-7.45) Cord VBG Base Excess (-10--2) Blood Type Antibody Screen Med Orders - Current: Current Medications Acetaminophen (Tylenol Extra Strength) 500 mg PO Q4H PRN PRN Reason: Pain Acetaminophen (Tylenol Extra Strength) 1,000 mg PO Q4H PRN PRN Reason: Pain Last Admin: 04/20/19 06:25 Dose: 1,000 mg Al Hydroxide/Mg Hydroxide (Mag-Al Plus) 30 ml PO Q8H PRN PRN Reason: Heartburn Benzocaine/Menthol (Dermoplast Pain Relief 20%-0.5% [place]) 78 gm TOP ASDIRECTED PRN PRN Reason: Perineal Comfort Measure Last Admin: 04/19/19 21:15 Dose: 1 can Bisacodyl (Dulcolax) 10 mg RECTAL ONETIME PRN PRN Reason: Constipation Butorphanol Tartrate (Stadol) 1 mg IVPUSH Q1H PRN PRN Reason: Pain Last Admin: 04/19/19 12:23 Dose: 1 mg Carboprost Tromethamine (Hemabate Ds) 250 mcg IM ASDIRECTED PRN PRN Reason: Post Hemorrhage Docusate Sodium (Colace) 100 mg PO BID PRN PRN Reason: Constipation Last Admin: 04/19/19 15:22 Dose: 100 mg Emollient Ointment (Lansinoh Hpa) 0 gm TOP ASDIRECTED PRN PRN Reason: Sore Nipples Last Admin: 04/19/19 21:14 Dose: 7 gram Lactated Ringer's (Ringers, Lactated) 1,000 mls @ 150 mls/hr IV ASDIRECTED BRISEIDA Last Admin: 04/19/19 13:36 Dose: 150 mls/hr Oxytocin/Sodium Chloride (Oxytocin 30 Unit/500 Ml-Ns) 30 unit in 500 mls @ 500 mls/hr IV BOLUS [facility] Last Admin: 04/19/19 14:33 Dose: 500 mls/hr Tranexamic Acid 1,000 mg/ (Sodium Chloride) 110 mls @ 660 mls/hr IV ONETIME PRN PRN Reason: Bleeding Ibuprofen (Motrin) 400 mg PO Q4H PRN PRN Reason: Pain Ibuprofen (Motrin) 800 mg PO Q6H PRN PRN Reason: Pain Last Admin: 04/20/19 04:37 Dose: 800 mg Lidocaine HCl (Xylocaine 1%) 50 ml INJECT ONETIME PRN PRN Reason: Laceration repair Methylergonovine Maleate (Methergine) 0.2 mg IM ASDIRECTED PRN PRN Reason: Post Hemorrhage Nalbuphine HCl (Nubain) 10 mg IVPUSH Q1H PRN PRN Reason: Pain (severe 7-10) Ondansetron HCl (Zofran) 4 mg IVPUSH Q6H PRN PRN Reason: Nausea/Vomiting Oxycodone HCl (Oxycodone) 5 mg PO Q2H PRN PRN Reason: Pain Sodium Chloride (Saline Flush) 10 ml FLUSH ASDIRECTED PRN PRN Reason: Keep Vein Open Sodium Chloride (Saline Flush) 2.5 ml FLUSH ASDIRECTED PRN PRN Reason: Keep Vein Open Sodium Chloride (Normal Saline) 10 ml IV ASDIRECTED PRN PRN Reason: IV Use Sterile Water (Sterile Water For Irrigation) 1,000 ml IRR ASDIRECTED PRN PRN Reason: delivery Last Admin: 04/19/19 14:40 Dose: 1,000 ml Witch Akanksha (Tucks) 1 pad TOP ASDIRECTED PRN PRN Reason: comfort care Last Admin: 04/19/19 21:14 Dose: 1 tub Discontinued Medications Ephedrine Sulfate (Ephedrine Sulfate) Confirm Administered Dose 50 mg .ROUTE .STK-MED ONE Stop: 04/19/19 14:14 Fentanyl (Sublimaze) Confirm Administered Dose 100 mcg .ROUTE .STK-MED ONE Stop: 04/19/19 13:31 Last Admin: 04/19/19 22:42 Dose: Not Given Ropivacaine (Naropin 0.2%) Confirm Administered Dose 100 mls @ as directed .ROUTE .STK-MED ONE Stop: 04/19/19 13:31 Last Admin: 04/19/19 22:42 Dose: Not Given Sodium Chloride (Normal Saline) Confirm Administered Dose 20 mls @ as directed .ROUTE .STK-MED ONE Stop: 04/19/19 14:14 Misoprostol (Cytotec) 200 mcg PO ONETIME PRN PRN Reason: Post Hemorrhage Phenylephrine HCl (Phenylephrine In Ns 100 Mcg/Ml) Confirm Administered Dose 1 mg .ROUTE .STK-MED ONE Stop: 04/19/19 14:14 - Infant Interaction Support Person: Significant Other - Recovery Exam Fundal Tone: Firm Fundal Level: 1 Fingerbreadths Below Umbilicus Fundal Placement: Midline Lochia Amount: Scant Lochia Color: Rubra/Red Perineum Description: Intact, Minimal Bruising/Swelling Episiotomy/Laceration: None Bladder Status: Voiding - Exam General: Alert, Oriented Lungs: Normal Respiratory Effort Cardiovascular: Regular Rate, Regular Rhythm GI/Abdominal Exam: Normal Bowel Sounds, Soft Extremities: Pedal Edema (trace). No: Toney's Sign Skin: Warm, Dry, Intact Neurological: No New Focal Deficit Psy/Mental Status: Alert, Normal Affect, Normal Mood - Problem List & Annotations (1) Vaginal delivery SNOMED Code(s): 117507323 Code(s): O80 - ENCOUNTER FOR FULL-TERM UNCOMPLICATED DELIVERY Status: Acute Current Visit: Yes - Problem List Review Problem List Initiated/Reviewed/Updated: Yes - My Orders Last 24 Hours: My Active Orders 04/19/19 10:15 Patient Status [ADT] Routine 04/19/19 11:27 Vital Signs [RC] PER UNIT ROUTINE Butorphanol [Stadol] 1 mg IVPUSH Q1H PRN Carboprost Tromethamine [Hemabate DS] 250 mcg IM ASDIRECTED PRN Lidocaine 1% [Xylocaine 1%] 50 ml INJECT ONETIME PRN Methylergonovine [Methergine] 0.2 mg IM ASDIRECTED PRN Nalbuphine [Nubain] 10 mg IVPUSH Q1H PRN Sodium Chloride 0.9% [Normal Saline] 10 ml IV ASDIRECTED PRN Sodium Chloride 0.9% [Saline Flush] 10 ml FLUSH ASDIRECTED PRN Sodium Chloride 0.9% [Saline Flush] 2.5 ml FLUSH ASDIRECTED PRN Tranexamic Acid [Cyklokapron] 1,000 mg Sodium Chloride 0.9% [Normal Saline] 100 ml IV ONETIME Water For Irrigation,Sterile [Sterile Water for Irrigation] 1,000 ml IRR ASDIRECTED PRN Peripheral IV Insertion Adult [OM.PC] Routine Resuscitation Status Routine 04/19/19 11:30 Lactated Ringers [Ringers, Lactated] 1,000 ml IV ASDIRECTED Oxytocin/0.9 % Sodium Chloride [Oxytocin 30 Unit/500 ML-NS] 30 unit in 500 ml IV BOLUS 04/19/19 14:50 Patient Status [ADT] Routine May Shower [RC] ASDIRECTED Notify Provider Vital Signs [RC] ASDIRECTED Up ad Krystin [RC] ASDIRECTED Vital Signs [RC] PER UNIT ROUTINE Acetaminophen [Tylenol Extra Strength] 1,000 mg PO Q4H PRN Acetaminophen [Tylenol Extra Strength] 500 mg PO Q4H PRN Alum Hydrox/Mag Hydrox/Simeth [Mag-Al Plus] 30 ml PO Q8H PRN Benzocaine/Menthol [Dermoplast Pain Relief 20%-0.5% [place]] 78 gm TOP ASDIRECTED PRN Bisacodyl [Dulcolax] 10 mg RECTAL ONETIME PRN Docusate Sodium [Colace] 100 mg PO BID PRN Ibuprofen [Motrin] 400 mg PO Q4H PRN Ibuprofen [Motrin] 800 mg PO Q6H PRN Lanolin [Lansinoh HPA] See Dose Instructions TOP ASDIRECTED PRN Ondansetron [Zofran] 4 mg IVPUSH Q6H PRN Witch Akanksha [Tucks] 1 pad TOP ASDIRECTED PRN oxyCODONE 5 mg PO Q2H PRN Assess Lochia [WOMSER] Per Unit Routine Assess Uterine Involution [WOMSER] Per Unit Routine Peripheral IV Discontinue [OM.PC] Routine 04/19/19 14:51 Ice Therapy [OM.PC] Per Unit Routine Perineal Care [OM.PC] Per Unit Routine Sitz Bath [OM.PC] Per Unit Routine 04/19/19 Lunch Regular Diet [DIET] - Assessment Assessment:: PPD 1 status post - Plan Plan:: Patient doing well overall, would like to go home later today. Discharge instructions reviewed. Follow up at [facility] 6 weeks.
--- NOTE | 2019-04-21 08:11 | OR ---
[place]: Ofelia Escalante M.D. DATE OF PROCEDURE: 04/19/2019 PREOPERATIVE DIAGNOSES: 1. A 39 6/7 weeks' intrauterine . 2. Active labor. POSTOPERATIVE DIAGNOSES: 1. A 39 6/7 weeks' intrauterine . 2. Active labor. PROCEDURE: Spontaneous vaginal delivery, intact perineum. PRIMARY SURGEON: Ofelia Escalante MD. ANESTHESIA: Epidural. ESTIMATED BLOOD LOSS: 250 mL. COMPLICATIONS: None known. FINDINGS: Viable female. score of 9 at 1 minute and 9 at 5 minutes. Weight is pending. Spontaneous delivery, intact placenta, 3-vessel cord. DISPOSITION: Infant to nursery, mom in LDRP. PROCEDURE DETAILS: Ofelia is a 23-year-old G2, P1, at 39 6/7 weeks' gestation, who presents on 04/19/2019, with leakage of fluid shortly after 9:00 a.m., clear, followed by regular intense contractions. The patient was admitted and routine labs drawn. She was progressing fairly quickly and, shortly before 2:00 p.m., was found to be 7 cm and requesting epidural. She underwent this satisfactorily, became more comfortable, and then approximately 30 minutes later, she had a deceleration to the 70s to 80s, for which the patient underwent resuscitation efforts with IV fluid bolus, oxygen, repositioning, and ephedrine. She responded nicely to this and heart tones recovered to the 120s. At that time, she was found to be 8 cm, and within 10 minutes, she started feeling more pressure. Was evaluated and found to be complete, 100% effaced, at +2 station. Therefore, she was placed in modified dorsOlithotomy position. Was prepped and draped in usual aseptic manner. Continued with pushing efforts. With the next contraction, was able to push. Delivered infant's head atraumatically spontaneously, followed by anterior shoulder, posterior shoulder, remainder of body without difficulty. 's oropharynx and nares were bulb suctioned. was handed off to her mother with attending nursing staff at side. After a delay, cord was clamped x2 and cut. Cord arterial, cord venous, cord blood sampling obtained. Light pressure was applied while the placenta was delivered with 3-vessel cord. Vigorous fundal uterine massage was then applied while 30 units of Pitocin was delivered in 500 mL of IV fluid. Upon inspection of cervix, vaginal sidewalls, and perineum, these were found to be intact. Uterus remained firm. Sponge, instrument, and needle count was correct. The patient is known to have a periurethral cyst. Since she is comfortable with epidural, I did attempt to aspirate with a 20-gauge needle. There was a very small amount of milky purulent type substance that returned, but no significant drainage was evident. Therefore, at this time told Ofelia we would lean towards allowing to observe it and see if it does not regress post delivery. If it is still present , can re-evaluate and discuss plan of care. The patient remained stable. Hemostasis evident. The patient remained in LDRP, infant to nursery. KATHY / CHACHA /[id number]
== END 2019-04-20 18:00 | disposition home or self-care (01) | DRG 807 ==
LOC: MW.OBCHECK 10:37 → MW.OB 12:00 → OBSVTOIN 14:30 → MW.OBCHECK 14:40 → MW.OB 15:51
PROVIDERS: ADMIT Obstetrics & Gynecology; ATTEND Obstetrics & Gynecology
PROC: 10E0XZZ Delivery of Products of Conception, External Approach (ICD-10-PCS; principal; 2019-04-19)
PROC: 3E0R3BZ Introduction of Anesthetic Agent into Spinal Canal, Percutaneous Approach (ICD-10-PCS; 2019-04-19)
PROC: 00HU33Z Insertion of Infusion Device into Spinal Canal, Percutaneous Approach (ICD-10-PCS; 2019-04-19)
DX: O76 Abnormality in fetal heart rate and rhythm complicating labor and delivery (principal); O34.83 Maternal care for other abnormalities of pelvic organs, third trimester; N94.89 Other specified conditions associated with female genital organs and menstrual cycle; Z3A.39 39 weeks gestation of pregnancy; Z37.0 Single live birth
CPT/HCPCS: 36415; 59025; 59409; 82803; 85014; 85018; 85027; 86850; 86900; 86901; A9270-GY; J0595; J2370; J2590; J2795; J3010; J7120

== ENCOUNTER 2020-03-19 13:19 | Emergency (ER) | payer SELFPAY ==
--- NOTE | 2020-03-19 13:40 | EDM.PDOC ---
ED HPI GENERAL MEDICAL PROBLEM - General Chief Complaint: General Stated Complaint: MED CLEAR Time Seen by Provider: 03/19/20 13:24 Source of Information: Reports: Patient History Limitations: Reports: No Limitations - History of Present Illness INITIAL COMMENTS - FREE TEXT/NARRATIVE: HISTORY AND PHYSICAL: History of present illness: Patient is a 24-year-old female who presents to the emergency room with law enforcement for medical clearance exam. Upon her intake the nurse had recorded a temperature of 102 Fahrenheit. Patient states she feels healthy and has no current complaints or concerns. Upon arrival to our emergency room her vital signs are normal and she is afebrile. Patient denies any fever, chills, headache, change in vision, syncope or near syncope. Denies any chest pain, back pain, shortness of breath or cough. Denies any abdominal pain, nausea, vomiting, diarrhea, constipation or dysuria. Has not noted any blood in urine or stool. Patient has been eating and drinking appropriately. No recent exposure to anyone who is been ill, no concerns for COVID-19. Review of systems: As per history of present illness and below otherwise all systems reviewed and negative. Past medical history: As per history of present illness and as reviewed below otherwise noncontributory. Surgical history: As per history of present illness and as reviewed below otherwise noncontributory. Social history: See social history for further information Family history: As per history of present illness and as reviewed below otherwise noncontributory. Physical exam: General: Well-developed and well-nourished 24-year-old female. Alert and oriented. Nontoxic-appearing and in no acute distress. Patient is accompanied by law enforcement. HEENT: Atraumatic, normocephalic, pupils equal and reactive bilaterally, negative for conjunctival pallor or scleral icterus, mucous membranes moist, trachea midline. No drooling or trismus noted. No meningeal signs. No hot potato voice noted. Lungs: Clear to auscultation, breath sounds equal bilaterally. Heart: S1S2, regular rate and rhythm without overt murmur Abdomen: Soft, nondistended, nontender. Skin: Intact, warm, dry. No lesions or rashes noted. Extremities: Atraumatic, moves all extremities per self without difficulty or deficits, negative for cords or calf pain. Neurovascular unremarkable. Neuro: Awake, alert, oriented. Cranial nerves II through XII unremarkable. Cerebellum unremarkable. Motor and sensory unremarkable throughout. Exam nonfocal. Notes: Patient's vital signs are normal, she is afebrile. Law enforcement has no concerns in particular. Declines diagnostics. She denies any drug or alcohol abuse. Patient will be discharged into the custody of law enforcement. Supportive care measures were reviewed and discussed. Voices understanding and is agreeable to plan of care. Denies any further questions or concerns at this time. Diagnostics: None Therapeutics: None Prescription: None Impression: Encounter for medical screening exam Plan: 1. Please use Tylenol and/or Ibuprofen as needed for pain and fever management. 2. Get plenty of Rest. Encourage fluids to prevent dehydration. 3. Please follow up with your primary care provider. Return to the ED as needed as discussed. Definitive disposition and diagnosis as appropriate pending reevaluation and review of above. - Related Data Allergies Allergy/AdvReac Type Severity Reaction Status Date / Time No Known Allergies Allergy Verified 03/19/20 13:38 Home Meds: Home Meds . 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 Social & Family History - Family History HEENT: Reports: Impaired Vision, Macular Degeneration Cardiac: Reports: [place] Respiratory: Reports: Asthma OBGYN: Reports: Musculoskeletal: Reports: Gout Neurological: Reports: CVA Endocrine/Metabolic: Reports: Diabetes, type II, Hypothyroidism, Obesity/MBI 30+ Dermatologic: Reports: Psoriasis Oncologic: Reports: Lung - Caffeine Use Caffeine Use: Reports: Coffee, Soda ED ROS GENERAL - Review of Systems Review Of Systems: Comprehensive ROS is negative, except as noted in HPI. ED EXAM, GENERAL - Physical Exam Exam: See Below (See dictation) Departure - Departure Time of Disposition: 13:40 Disposition: Home, Self-Care 01 Clinical Impression: Encounter for medical screening examination - Discharge Information Instructions: Medical Screening Exam Referrals: PCP,None [Primary Care Provider] - Forms: ED Department Discharge Additional Instructions: The following information is given to patients seen in the emergency department who are being discharged to home. This information is to outline your options for follow-up care. We provide all patients seen in our emergency department with a follow-up referral. The need for follow-up, as well as the timing and circumstances, are variable depending upon the specifics of your emergency department visit. If you don't have a primary care physician on staff, we will provide you with a referral. We always advise you to contact your personal physician following an emergency department visit to inform them of the circumstance of the visit and for follow-up with them and/or the need for any referrals to a consulting specialist. The emergency department will also refer you to a specialist when appropriate. This referral assures that you have the opportunity for follow-up care with a specialist. All of these measure are taken in an effort to provide you with optimal care, which includes your follow-up. Under all circumstances we always encourage you to contact your private physician who remains a resource for coordinating your care. When calling for follow-up care, please make the office aware that this follow-up is from your recent emergency room visit. If for any reason you are refused follow-up, please contact the [facility] Emergency Department at and asked to speak to the emergency department charge nurse. [facility] [address] [place] [address] [place] [address] Thank you for choosing the [facility] emergency department in [place] for your medical needs today. It was a pleasure caring for you. Today you were seen in the emergency department for medical screening exam. 1. Please use Tylenol and/or Ibuprofen as needed for pain and fever management. 2. Get plenty of Rest. Encourage fluids to prevent dehydration. 3. Please follow up with your primary care provider. Return to the ED as needed as discussed.
== END 2020-03-19 13:58 | disposition home or self-care (01) ==
LOC: MW.ED 13:19
DX: Z02.89 Encounter for other administrative examinations (principal)
CPT/HCPCS: 99282

== ENCOUNTER 2020-11-05 14:54 | Emergency (ER) | payer SELFPAY ==
--- NOTE | 2020-11-05 15:45 | EDM.PDOC ---
ED HPI GENERAL MEDICAL PROBLEM - General Chief Complaint: Upper Extremity Injury/Pain Stated Complaint: INFECTED RT MIDDLE FINGER Time Seen by Provider: 11/05/20 15:00 Source of Information: Reports: Patient History Limitations: Reports: No Limitations - History of Present Illness INITIAL COMMENTS - FREE TEXT/NARRATIVE: Patient is a 24-year-old female who presents today for right middle finger pain and swelling. Patient states that any bites and clips her nails. Since that time she had some swelling around the edge of her nail. Patient reports some drainage as well which he squeezes on it. Patient denies any fever chills nausea vomiting other complaints. 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 - Infectious Disease History Infectious Disease History: Reports: None Social & Family History - Family History HEENT: Reports: Impaired Vision, Macular Degeneration Cardiac: Reports: [place] Respiratory: Reports: Asthma OBGYN: Reports: Musculoskeletal: Reports: Gout Neurological: Reports: CVA Endocrine/Metabolic: Reports: Diabetes, type II, Hypothyroidism, Obesity/MBI 30+ Dermatologic: Reports: Psoriasis Oncologic: Reports: Lung - Tobacco Use Tobacco Use Status *Q: Current Every Day Tobacco User Years of Tobacco use: 4 Packs/Tins Daily: 0.1 - Caffeine Use Caffeine Use: Reports: None - Recreational Drug Use Recreational Drug Use: No Review of Systems - Review of Systems Review Of Systems: See Below Constitutional: Reports: No Symptoms Eyes: Reports: No Symptoms Ears: Reports: No Symptoms Nose: Reports: No Symptoms Mouth/Throat: Reports: No Symptoms Respiratory: Reports: No Symptoms Cardiovascular: Reports: No Symptoms GI/Abdominal: Reports: No Symptoms Genitourinary: Reports: No Symptoms Musculoskeletal: Reports: Hand Pain Skin: Reports: No Symptoms Neurological: Reports: No Symptoms Psychiatric: Reports: No Symptoms ED EXAM, GENERAL - Physical Exam Exam: See Below Exam Limited By: No Limitations General Appearance: Alert, WD/WN Respiratory/Chest: No Respiratory Distress Cardiovascular: Normal Peripheral Pulses, Regular Rate, Rhythm GI/Abdominal: Normal Bowel Sounds, Soft, Non-Tender Extremities: Other (right middle finger paronychia) Neurological: Alert, Oriented ED TRAUMA EXTREMITY PROCEDURES - I&D Site: right middle finger Skin Prep: Providone-Iodine (Betadine) Local Anesthesia: Lidocaine: 1% Plain Local Anesthetic Volume: 3cc Area Incised With: 11 Blade Drainage: Purulent Probed to Break Up Loculations: No Packed With: None Sterile Dressing: Adhesive Dressing Complications: No Course - Vital Signs Last Recorded V/S: Last Vital Signs Temp 98.8 F 11/05/20 15:41 Pulse 81 11/05/20 15:41 Resp 16 11/05/20 15:41 BP 114/78 11/05/20 15:41 Pulse Ox 98 11/05/20 15:41 - Orders/Labs/Meds Meds: Medications Discontinued Medications Generic Name Dose Route Start Last Admin Trade Name Abdoulaye PRN Reason Stop Dose Admin Amoxicillin/Clavulanate Potassium 1 tab 11/05/20 15:47 11/05/20 16:06 Amoxicillin/Clavulanate K 875-125 Mg Tab PO 11/05/20 15:48 1 tab ONETIME ONE Administration Lidocaine HCl Confirm 11/05/20 15:58 11/05/20 16:07 Lidocaine 1% 5 Ml Sdv Administered 11/05/20 15:59 Not Given Dose 5 ml .ROUTE .STK-MED ONE Lidocaine HCl 5 ml 11/05/20 16:06 11/05/20 16:07 Lidocaine 1% 5 Ml Sdv INJECT 11/05/20 16:07 5 ml ONETIME ONE Administration - Re-Assessments/Exams Free Text/Narrative Re-Assessment/Exam: 11/05/20 16:43 Patient with had a paronychia and felon of the right middle finger. We were able to I&D and get a minute amount of pus. Patient has some pain relief. Patient was placed on antibiotics and discharged home. Departure - Departure Time of Disposition: 16:46 Disposition: Home, Self-Care 01 Condition: Good Clinical Impression: Mika Chu of finger - Discharge Information *PRESCRIPTION DRUG MONITORING PROGRAM REVIEWED*: Not Applicable *COPY OF PRESCRIPTION DRUG MONITORING REPORT IN PATIENT NELI: Not Applicable Instructions: Vlad, [id number], Fingertip Infection Forms: ED Department Discharge Additional Instructions: The following information is given to patients seen in the emergency department who are being discharged to home. This information is to outline your options for follow-up care. We provide all patients seen in our emergency department with a follow-up referral. The need for follow-up, as well as the timing and circumstances, are variable depending upon the specifics of your emergency department visit. If you don't have a primary care physician on staff, we will provide you with a referral. We always advise you to contact your personal physician following an emergency department visit to inform them of the circumstance of the visit and for follow-up with them and/or the need for any referrals to a consulting specialist. The emergency department will also refer you to a specialist when appropriate. This referral assures that you have the opportunity for follow-up care with a specialist. All of these measure are taken in an effort to provide you with optimal care, which includes your follow-up. Under all circumstances we always encourage you to contact your private physician who remains a resource for coordinating your care. When calling for follow-up care, please make the office aware that this follow-up is from your recent emergency room visit. If for any reason you are refused follow-up, please contact the [facility] Emergency Department at and asked to speak to the emergency department charge nurse. Please follow up with your primary care physician. If you do not have a primary care physician, see below: [facility] [address] [place] [id number] [facility] [address] [place] [phone] Lease return in 2 days to have a wound check of your finger. Otherwise would like you to follow-up with your primary care physician. The syndrome antibiotics please take those as prescribed. Also we can to joint pain meds can take those pain meds when the pain is really bad. Continue to go home and soak your finger in warm Epson salt. If you have any other concerning symptoms please return to the ED. Sepsis Event Note (ED) - Evaluation Sepsis Screening Result: No Definite Risk - Focused Exam Vital Signs: Vital Signs Temp Pulse Resp BP Pulse Ox 11/05/20 15:41 98.8 F 81 16 114/78 98 - Assessment/Plan Assessment:: Is a 24-year-old female who presents today for possible paronychia light. Will give lidocaine and L&D and placed on antibiotics.
[2020-11-05] MEDS ORDERED: Amoxicillin/Clavulanate K 875-125 MG Tab PO ONE (15:47)
[2020-11-05] MEDS ORDERED: Lidocaine 1% 10 ML MDV INFILT ONE (15:47)
[2020-11-05] MEDS ORDERED: Bacitracin Oint 1 GM U/D Packet ONE (17:02)
== END 2020-11-05 17:10 | disposition home or self-care (01) ==
LOC: MW.ED 14:54
DX: L03.011 Cellulitis of right finger (principal); Z72.0 Tobacco use
CPT/HCPCS: 26011; 99283; A9270; 10060

== ENCOUNTER 2020-11-08 23:18 | Emergency (ER) | payer SELFPAY ==
[2020-11-08] MEDS ORDERED: Sulfamethoxazole/Trimethoprim 800-160 MG Tab PO ONE (23:39)
--- NOTE | 2020-11-09 | EDM.PDOC ---
ED HPI GENERAL MEDICAL PROBLEM - General Chief Complaint: Upper Extremity Injury/Pain Stated Complaint: RT MIDDLE FINGER SWOLLEN Time Seen by Provider: 11/08/20 23:36 - History of Present Illness INITIAL COMMENTS - FREE TEXT/NARRATIVE: HISTORY AND PHYSICAL: History of present illness: This is a 24-year-old female who presents ER today secondary to pain and swelling to her right middle finger. Patient reports that she was seen here a couple days ago and had her finger anesthetized and drained and was started on amoxicillin. Patient reports that she has been taking amoxicillin for the last 2 days without any improvement and feel that is getting worse. Patient denies any recent fevers, shakes, chills, nausea, vomiting, diarrhea. Patient denies any other past medical history. Review of systems: As per history of present illness and below otherwise all systems reviewed and negative. Past medical history: As per history of present illness and as reviewed below otherwise noncontributory. Surgical history: As per history of present illness and as reviewed below otherwise noncontributory. Social history: No reported history of drug or alcohol abuse. Family history: As per history of present illness and as reviewed below otherwise noncontributory. Physical exam: This patient was seen and evaluated during the 2019 SARS-CoV-2 novel coronavirus pandemic period. Community viral transmission is ongoing at time of this encounter and the emergency department is operating under pandemic response procedures. Constitutional: Patient is oriented to person, place, and time. Appears well- developed and well-nourished. No distress. HEENT: Moist mucous membranes Head: Normocephalic and atraumatic Eyes: Right eye exhibits no discharge. Left eye exhibits no discharge. No scleral icterus Neck: Normal range of motion. No tracheal deviation present. Cardiovascular: Normal rate and regular rhythm. Pulmonary: Effort normal, no respiratory distress. Abdominal: No distention Musculoskeletal: Normal range of motion Neurologic: Alert and oriented to person, place and time. Skin: [place], warm and dry. Psychiatric: Normal mood and affect. Behavior is normal. Judgment and thought content normal. Nursing note and vital signs have been reviewed Patient's ER physical exam is significant for paronychia to her right middle finger with small amount of purulent drainage expressed from the area of prior incision and drainage. No lymphangitic streaking. Infection is localized to the nail bed. Patient does have tenderness and swelling to her volar tuft of her finger. When pressure is applied a small amount of purulent material was expressed from the incision that was made during her prior visit. It appears that during her prior visit it was felt that she might have a felon and so a inc ision was made in the mid lateral approach and medial approach. After draining of her paronychia, the incisions that were made during her prior visit were extended. After the skin was anesthetized, the wound cavity was irrigated with approximately 10 cc of lidocaine which passed from medial to lateral incision. Patient has failed the prior incision and drainage so a fishmouth incision was made and a plain quarter inch iodoform gauze was packed through. I have discussed risks and the benefits with the patient and they are in agreement with the current plan. Patient tolerated procedure well and reports that she felt much better and felt much less pressure after the incision and drainage and packing was placed. Patient will return to the ER tomorrow for me to reevaluate her in the ED. Patient was instructed to continue taking her Augmentin and will add Bactrim DS 2 tablets p.o. twice daily. I have informed patient that I am working tomorrow night as well and she has agreed to return so that I can reevaluate her tomorrow for possible packing removal. Therapeutics: Bactrim DS 2 tablets p.o. 1 cc of 1% lidocaine was utilized and injected into the abscess area. Using an 11 blade scalpel the abscess was incision and drained and a small amount of purulent material was expressed. Patient reports she feels much better and feels relief of the pressure that was there. Assessment and plan: This is a 24-year-old female who presents ER today secondary to failure of outpatient therapy with amoxicillin for her paronychia. Repeat incision and drainage was performed with a small amount of purulent material achieved. Patient be started on Bactrim DS 2 tablets p.o. twice daily for treatment of possible MRSA. Patient does bite her fingernails and have advised her against it. Patient will also be given a prescription for Diflucan as she gets yeast infections after antibiotics. Patient be given a prescription for ibuprofen to assist with her pain. I have instructed the patient to see your family doctor in 2 days for wound check. Reassessment at the time of disposition demonstrates that the patient is in no acute distress. The patient has remained stable throughout the entire ED visit and is without objective evidence for acute process requiring urgent intervention or hospitalization. The patient is stable for discharge, counseling is provided as documented above, discussed symptomatic treatment and specific conditions for return. I have spoken with the patient/caregiver and discussed todays findings, in addition to providing specific details for the plan of care. Questions are answered and there is agreement with the plan. Definitive disposition and diagnosis as appropriate pending reevaluation and review of above. right middle Pain Score (Numeric/FACES): 6 - Related Data Allergies Allergy/AdvReac Type Severity Reaction Status Date / Time No Known Allergies Allergy Verified 11/08/20 23:32 Home Meds: Home Meds Acetaminophen/oxyCODONE [Percocet 325-5 MG] 1 each PO Q8HR PRN 3 Days #9 tab 11/05/20 [Rx] Amoxicillin/Potassium Clav [Augmentin 875-125 Tablet] 1 each PO BID 7 Days #14 tablet 11/05/20 [Rx] Naproxen 500 mg PO BID PRN 5 Days #10 tablet 11/05/20 [Rx] Acetaminophen/HYDROcodone [[place] 325-5 MG] 1 tab PO Q6H PRN #12 tablet 11/09/20 [Rx] Fluconazole [Diflucan] 150 mg PO ONETIME #1 tab 11/09/20 [Rx] Sulfamethoxazole/Trimethoprim [Bactrim Ds Tablet] 2 each PO BID #40 tablet 11/09/20 [Rx] Past Medical History - Past Health History Medical/Surgical History: Denies Medical/Surgical History 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 - Infectious Disease History Infectious Disease History: Reports: None Social & Family History - Family History HEENT: Reports: Impaired Vision, Macular Degeneration Cardiac: Reports: [place] Respiratory: Reports: Asthma OBGYN: Reports: Musculoskeletal: Reports: Gout Neurological: Reports: CVA Endocrine/Metabolic: Reports: Diabetes, type II, Hypothyroidism, Obesity/MBI 30+ Dermatologic: Reports: Psoriasis Oncologic: Reports: Lung - Caffeine Use Caffeine Use: Reports: None Review of Systems - Review of Systems Review Of Systems: See Below ED EXAM, GENERAL - Physical Exam Exam: See Below Course - Vital Signs Last Recorded V/S: Last Vital Signs Temp 97.0 F 11/08/20 23:33 Pulse 100 11/08/20 23:33 Resp 18 11/08/20 23:33 BP 100/74 11/08/20 23:33 Pulse Ox 97 11/08/20 23:33 - Orders/Labs/Meds Meds: Medications Discontinued Medications Generic Name Dose Route Start Last Admin Trade Name Freq PRN Reason Stop Dose Admin Hydrocodone Bitart/Acetaminophen 1 tab 11/09/20 00:33 11/09/20 00:40 Acetaminophen/Hydrocodone 325-5 Mg Tab PO 11/09/20 00:34 1 tab ONETIME ONE Administration Lidocaine HCl 5 ml 11/08/20 23:39 11/08/20 23:46 Lidocaine 1% 5 Ml Sdv INJECT 11/08/20 23:40 5 ml ONETIME ONE Administration Lidocaine HCl 5 ml 11/09/20 00:17 11/09/20 00:43 Lidocaine 1% 5 Ml Sdv INJECT 11/09/20 00:18 5 ml ONETIME ONE Administration Lidocaine HCl Confirm 11/09/20 00:16 11/09/20 00:37 Lidocaine 1% 5 Ml Sdv Administered 11/09/20 00:17 Not Given Dose 5 ml .ROUTE .STK-MED ONE Lidocaine HCl 5 ml 11/09/20 00:33 11/09/20 00:49 Lidocaine 1% 5 Ml Sdv INJECT 11/09/20 00:34 Not Given ONETIME ONE Trimethoprim/Sulfamethoxazole 2 tab 11/08/20 23:39 11/08/20 23:46 Sulfamethoxazole/Trimethoprim 800-160 Mg Tab PO 11/08/20 23:40 2 tab ONETIME ONE Administration Departure - Departure Time of Disposition: 23:58 Disposition: Home, Self-Care 01 Condition: Good Clinical Impression: Paronychia, Felon of finger - Discharge Information Prescriptions: Sulfamethoxazole/Trimethoprim [Bactrim Ds Tablet] 2 each PO BID #40 tablet Fluconazole [Diflucan] 150 mg PO ONETIME #1 tab Acetaminophen/HYDROcodone [[place] 325-5 MG] 1 tab PO Q6H PRN #12 tablet PRN Reason: Pain Instructions: Paronychia Referrals: PCP,None [Primary Care Provider] - Forms: ED Department Discharge Additional Instructions: Your seen and evaluated in the ER today secondary to a paronychia to your finger. This was treated with an incision and drainage of the abscess. Please stop the amoxicillin that you are taking and please switch over to Bactrim DS 2 tablets twice a day for 10 days. Please make sure you see your family doctor in 2 days for wound check. You can take ibuprofen as needed for pain. The following information is given to patients seen in the emergency department who are being discharged to home. This information is to outline your options for follow-up care. We provide all patients seen in our emergency department with a follow-up referral. The need for follow-up, as well as the timing and circumstances, are variable depending upon the specifics of your emergency department visit. If you don't have a primary care physician on staff, we will provide you with a referral. We always advise you to contact your personal physician following an emergency department visit to inform them of the circumstance of the visit and for follow-up with them and/or the need for any referrals to a consulting specialist. The emergency department will also refer you to a specialist when appropriate. This referral assures that you have the opportunity for follow-up care with a specialist. All of these measure are taken in an effort to provide you with optimal care, which includes your follow-up. Under all circumstances we always encourage you to contact your private physician who remains a resource for coordinating your care. When calling for follow-up care, please make the office aware that this follow-up is from your recent emergency room visit. If for any reason you are refused follow-up, please contact the [facility] Emergency Department at and asked to speak to the emergency department charge nurse. [facility] - Primary Care [address] [place] [id number] [id number] Please return to the ER tomorrow for a wound check. Continue taking the augmentin along with the bactrim Sepsis Event Note (ED) - Evaluation Sepsis Screening Result: No Definite Risk - Focused Exam Vital Signs: Vital Signs Temp Pulse Resp BP Pulse Ox 11/08/20 23:33 97.0 F 100 18 100/74 97
[2020-11-09] MEDS ORDERED: Acetaminophen/HYDROcodone 325-5 MG Tab PO ONE (00:33)
== END 2020-11-09 00:51 | disposition home or self-care (01) ==
LOC: MW.ED 23:18
DX: L03.011 Cellulitis of right finger (principal)
CPT/HCPCS: 26011; 99283; A9270

== ENCOUNTER 2020-11-10 01:12 | Emergency (ER) | payer SELFPAY ==
[2020-11-10] MEDS ORDERED: Sulfamethoxazole/Trimethoprim 800-160 MG Tab PO ONE (01:33)
--- NOTE | 2020-11-10 01:37 | EDM.PDOC ---
ED HPI GENERAL MEDICAL PROBLEM - General Chief Complaint: Wound Recheck Stated Complaint: WOUND PROBLEM Time Seen by Provider: 11/10/20 01:27 - History of Present Illness INITIAL COMMENTS - FREE TEXT/NARRATIVE: HISTORY AND PHYSICAL: History of present illness: This is a 24-year-old female who presents ER today for wound check as requested by me. Patient was seen here yesterday secondary to a paronychia and likely felon infection. Yesterday patient had incision and drainage performed of a paronychia. Patient had been here several days prior and had a medial lateral incision performed but it appears that this failed as she reported that there was increased welling and worsening despite prior I&D. Secondary to failure of the prior incisions, a packing was placed for 24 hours to allow antibiotics to work and drainage. Patient presents to the ER today reports significant improvement in pain and discomfort and swelling to the tuft of her finger. Patient report there was some mild drainage from the paronychia site but she was able to express that out Review of systems: As per history of present illness and below otherwise all systems reviewed and negative. Past medical history: As per history of present illness and as reviewed below otherwise noncontributory. Surgical history: As per history of present illness and as reviewed below otherwise noncontributory. Social history: No reported history of drug or alcohol abuse. Family history: As per history of present illness and as reviewed below otherwise noncontributory. Physical exam: This patient was seen and evaluated during the 2019 SARS-CoV-2 novel coronavirus pandemic period. Community viral transmission is ongoing at time of this encounter and the emergency department is operating under pandemic response procedures. Constitutional: Patient is oriented to person, place, and time. Appears well- developed and well-nourished. No distress. HEENT: Moist mucous membranes Head: Normocephalic and atraumatic Eyes: Right eye exhibits no discharge. Left eye exhibits no discharge. No scleral icterus Neck: Normal range of motion. No tracheal deviation present. Cardiovascular: Normal rate and regular rhythm. Pulmonary: Effort normal, no respiratory distress. Abdominal: No distention Musculoskeletal: Normal range of motion Neurologic: Alert and oriented to person, place and time. Skin: [place], warm and dry. Psychiatric: Normal mood and affect. Behavior is normal. Judgment and thought content normal. Nursing note and vital signs have been reviewed Paronychia significantly improved with small amount of purulent material but minimal swelling and erythema. Felon site with no fluctuance or swelling. Patient reports he feels much improved. Packing is removed and no purulent drainage is expressed. Assessment and plan: 24-year-old who presents for wound check secondary to paronychia and felon. Patient is currently on Augmentin. Patient did not get her prescription for Bactrim filled. Patient will be given Bactrim DS 2 tablets p.o. now and will be able to fill it up in the morning and is to continue her Augmentin. Patient will need to follow-up with her primary care doctor in 1 days for reevaluation. Reassessment at the time of disposition demonstrates that the patient is in no acute distress. The patient has remained stable throughout the entire ED visit and is without objective evidence for acute process requiring urgent intervention or hospitalization. The patient is stable for discharge, counseling is provided as documented above, discussed symptomatic treatment and specific conditions for return. I have spoken with the patient/caregiver and discussed todays findings, in addition to providing specific details for the plan of care. Questions are answered and there is agreement with the plan. right middle finger Pain Score (Numeric/FACES): 4 - Related Data Allergies Allergy/AdvReac Type Severity Reaction Status Date / Time No Known Allergies Allergy Verified 11/10/20 01:27 Home Meds: Home Meds Acetaminophen/oxyCODONE [Percocet 325-5 MG] 1 each PO Q8HR PRN 3 Days #9 tab [Rx] Amoxicillin/Potassium Clav [Augmentin 875-125 Tablet] 1 each PO BID 7 Days #14 tablet 11/05/20 [Rx] Naproxen 500 mg PO BID PRN 5 Days #10 tablet 11/05/20 [Rx] Acetaminophen/HYDROcodone [[place] 325-5 MG] 1 tab PO Q6H PRN #12 tablet 11/09/20 [Rx] Fluconazole [Diflucan] 150 mg PO ONETIME #1 tab 11/09/20 [Rx] Sulfamethoxazole/Trimethoprim [Bactrim Ds Tablet] 2 each PO BID #40 tablet 11/09/20 [Rx] Past Medical History - Past Health History Medical/Surgical History: Denies Medical/Surgical History 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 - Infectious Disease History Infectious Disease History: Reports: None Social & Family History - Family History HEENT: Reports: Impaired Vision, Macular Degeneration Cardiac: Reports: [place] Respiratory: Reports: Asthma OBGYN: Reports: Musculoskeletal: Reports: Gout Neurological: Reports: CVA Endocrine/Metabolic: Reports: Diabetes, type II, Hypothyroidism, Obesity/MBI 30+ Dermatologic: Reports: Psoriasis Oncologic: Reports: Lung - Caffeine Use Caffeine Use: Reports: None ED ROS GENERAL - Review of Systems Review Of Systems: See Below ED EXAM, GENERAL - Physical Exam Exam: See Below Course - Vital Signs Last Recorded V/S: Last Vital Signs Temp 97.8 F 11/10/20 01:25 Pulse 90 11/10/20 01:25 Resp 18 11/10/20 01:25 BP 113/72 11/10/20 01:25 Pulse Ox 99 11/10/20 01:25 - Orders/Labs/Meds Orders: Active Orders 24 hr Category Date Time Status Sulfamethoxazole/Trimethoprim [Septra DS] Med 11/10/20 01:33 Once 2 tab PO ONETIME ONE Departure - Departure Time of Disposition: 01:36 Disposition: Home, Self-Care 01 Condition: Good Clinical Impression: Vlad Brennan - Discharge Information Instructions: Wound Care, Adult Referrals: PCP,None [Primary Care Provider] - Additional Instructions: Please make an appointment to see your doctor in 1 to 2 days for wound check. Please make sure that you get your Bactrim filled in the morning so they continue taking it. Return to the ER if you have any increased pain or swelling to that area or any concerns. The following information is given to patients seen in the emergency department who are being discharged to home. This information is to outline your options for follow-up care. We provide all patients seen in our emergency department with a follow-up referral. The need for follow-up, as well as the timing and circumstances, are variable depending upon the specifics of your emergency department visit. If you don't have a primary care physician on staff, we will provide you with a referral. We always advise you to contact your personal physician following an emergency department visit to inform them of the circumstance of the visit and for follow-up with them and/or the need for any referrals to a consulting specialist. The emergency department will also refer you to a specialist when appropriate. This referral assures that you have the opportunity for follow-up care with a specialist. All of these measure are taken in an effort to provide you with optimal care, which includes your follow-up. Under all circumstances we always encourage you to contact your private physician who remains a resource for coordinating your care. When calling for follow-up care, please make the office aware that this follow-up is from your recent emergency room visit. If for any reason you are refused follow-up, please contact the [facility] Emergency Department at and asked to speak to the emergency department charge nurse. [facility] [address] [place] [id number] [facility] [address] [place] [id number] Sepsis Event Note (ED) - Evaluation Sepsis Screening Result: No Definite Risk - Focused Exam Vital Signs: Vital Signs Temp Pulse Resp BP Pulse Ox 11/10/20 01:25 97.8 F 90 18 113/72 99 - My Orders Last 24 Hours: My Active Orders 11/10/20 01:33 Sulfamethoxazole/Trimethoprim [Septra DS] 2 tab PO ONETIME ONE - Assessment/Plan Last 24 Hours: My Active Orders 11/10/20 01:33 Sulfamethoxazole/Trimethoprim [Septra DS] 2 tab PO ONETIME ONE
== END 2020-11-10 01:58 | disposition home or self-care (01) ==
LOC: MW.ED 01:12
DX: L03.011 Cellulitis of right finger (principal)
CPT/HCPCS: 99282; A9270

== ENCOUNTER 2020-12-31 20:15 | Emergency (ER) | payer OTHER ==
[2020-12-31] MEDS ORDERED: Acetaminophen 500 MG Tab PO ONE (20:20)
--- NOTE | 2020-12-31 20:24 | EDM.PDOC ---
ED HPI GENERAL MEDICAL PROBLEM - General Stated Complaint: AND FELL Time Seen by Provider: 12/31/20 20:19 Source of Information: Reports: Patient, Police History Limitations: Reports: No Limitations - History of Present Illness INITIAL COMMENTS - FREE TEXT/NARRATIVE: 25-year-old female roughly 3 or 4 months presents status post fall. Patient was arrested today and does present from long term with PD. Patient tripped on a blanket and fell forward hitting the left lower part of her abdomen on a chair. Afterwards she notes pain to the area. She is unsure when her last menstrual period was but estimates it was sometime in August, notes history of irregular periods. She has not had any SPANISH LINGUIST services and has not had any imaging of this . She states that she noticed a small amount of blood when wiping after using the bathroom after the fall. She denies any nausea or vomiting. Denies hitting her head. Denies any other pain aside from the left lower portion of her abdomen. Left Abdomen Pain Score (Numeric/FACES): 4 - Related Data Allergies Allergy/AdvReac Type Severity Reaction Status Date / Time No Known Allergies Allergy Verified 12/31/20 20:24 Home Meds: Home Meds . [No Known Home Meds] 12/31/20 [History] Past Medical History - Past Health History Medical/Surgical History: Denies Medical/Surgical History HEENT History: Reports: None Cardiovascular History: Reports: None Respiratory History: Reports: None Gastrointestinal History: Reports: GERD Genitourinary History: Reports: None SPANISH LINGUIST History: Reports: Musculoskeletal History: Reports: None Neurological History: Reports: None Psychiatric History: Reports: None Other Psychiatric History: Positive drug screen in June 2017. Endocrine/Metabolic History: Reports: None Insulin Pump Model and C Software Engineer: None Hematologic History: Reports: None Immunologic History: Reports: None Oncologic (Cancer) History: Reports: None Dermatologic History: Reports: None - Infectious Disease History Infectious Disease History: Reports: None - Past Surgical History Head Surgeries/Procedures: Reports: None Social & Family History - Family History HEENT: Reports: Impaired Vision, Macular Degeneration Cardiac: Reports: VT Respiratory: Reports: Asthma OBGYN: Reports: Musculoskeletal: Reports: Gout Neurological: Reports: CVA Endocrine/Metabolic: Reports: Diabetes, type II, Hypothyroidism, Obesity/MBI 30+ Dermatologic: Reports: Psoriasis Oncologic: Reports: Lung - Caffeine Use Caffeine Use: Reports: Coffee, Soda ED ROS GENERAL - Review of Systems Review Of Systems: Comprehensive ROS is negative, except as noted in HPI. ED EXAM, GENERAL - Physical Exam Exam: See Below Exam Limited By: No Limitations General Appearance: Alert, WD/WN, No Apparent Distress Eye Exam: Bilateral Eye: PERRL Ears: Normal External Exam Nose: Normal Inspection Throat/Mouth: Normal Voice, No Airway Compromise Head: Atraumatic, Normocephalic Neck: Normal Inspection, Non-Tender Respiratory/Chest: No Respiratory Distress, Lungs Clear, Normal Breath Sounds, No Accessory Muscle Use Cardiovascular: Normal Peripheral Pulses, Regular Rate, Rhythm GI/Abdominal: Soft, Non-Tender Extremities: Normal Inspection Neurological: Alert, No Motor/Sensory Deficits Psychiatric: Normal Affect, Normal Mood Skin Exam: Warm, Dry, Intact, Normal Color Course - Vital Signs Last Recorded V/S: Last Vital Signs Temp 97 F 12/31/20 20:16 Pulse 77 12/31/20 22:35 Resp 18 12/31/20 22:35 BP 96/61 12/31/20 20:16 Pulse Ox 98 12/31/20 22:35 - Orders/Labs/Meds Orders: Active Orders 24 hr Category Date Time Status Doppler Umbilical [US] Stat Exams 12/31/20 20:20 Taken Labs: Laboratory Tests 12/31/20 12/31/20 12/31/20 Range/Units 20:24 20:24 20:26 WBC 10.68 (4.0-11.0) K/uL RBC 4.02 L (4.30-5.90) M/uL Hgb 11.7 L (12.0-16.0) g/dL Hct 35.4 L (36.0-46.0) % MCV 88.1 (80.0-98.0) fL MCH 29.1 (27.0-32.0) pg MCHC 33.1 (31.0-37.0) g/dL RDW Std Deviation 43.5 (28.0-62.0) fl RDW Coeff of Gloria 14 (11.0-15.0) % Plt Count 267 (150-400) K/uL MPV 9.10 (7.40-12.00) fL Neut % (Auto) 79.0 (48.0-80.0) % Lymph % (Auto) 17.1 (16.0-40.0) % Bladen % (Auto) 3.5 (0.0-15.0) % Eos % (Auto) 0.3 (0.0-7.0) % Baso % (Auto) 0.1 (0.0-1.5) % Neut # (Auto) 8.4 H (1.4-5.7) K/uL Lymph # (Auto) 1.8 (0.6-2.4) K/uL Bladen # (Auto) 0.4 (0.0-0.8) K/uL Eos # (Auto) 0.0 (0.0-0.7) K/uL Baso # (Auto) 0.0 (0.0-0.1) K/uL Nucleated RBC % 0.0 /100WBC Nucleated RBCs # 0 K/uL Sodium 136 (136-145) mmol/L Potassium 3.5 (3.5-5.1) mmol/L Chloride 104 (98-107) mmol/L Carbon Dioxide 27.6 (21.0-32.0) mmol/L BUN 7 (7.0-18.0) mg/dL Creatinine 0.6 (0.6-1.0) mg/dL Est Cr Clr Drug Dosing 102.06 mL/min Estimated GFR (MDRD) > 60.0 ml/min Glucose 83 (74-106) mg/dL Calcium 8.1 L (8.5-10.1) mg/dL Total Bilirubin 0.3 (0.2-1.0) mg/dL AST 16 (15-37) IU/L ALT 19 (14-63) IU/L Alkaline Phosphatase 44 L (46-116) U/L Total Protein 6.1 L (6.4-8.2) g/dL Albumin 2.6 L (3.4-5.0) g/dL Globulin 3.5 (2.6-4.0) g/dL Albumin/Globulin Ratio 0.7 L (0.9-1.6) HCG, Quant 9941.0 mIU/mL Blood Type A POSITIVE Meds: Medications Discontinued Medications Generic Name Dose Route Start Last Admin Trade Name Freq PRN Reason Stop Dose Admin Acetaminophen 1,000 mg 12/31/20 20:20 12/31/20 20:42 Acetaminophen 500 Mg Tab PO 12/31/20 20:21 1,000 mg ONETIME ONE Administration - Re-Assessments/Exams Free Text/Narrative Re-Assessment/Exam: 12/31/20 20:23 Patient does not have any signs of trauma on physical exam. FHR 143. Will get basic labs including quantitative beta-hCG. As patient has not had any ultrasonography of this we will get a pelvic ultrasound to assess viability and positioning. Will give Tylenol for pain. 12/31/20 23:02 Ultrasonography reveals a 20-week healthy-appearing male fetus. Will discharge patient with SPANISH LINGUIST follow-up. Departure - Departure Time of Disposition: 23:02 Disposition: Home, Self-Care 01 Condition: Good Clinical Impression: Blunt abdominal trauma Qualifiers: Encounter type: initial encounter Qualified Code(s): S39.91XA - Unspecified injury of abdomen, initial encounter - Discharge Information Instructions: Blunt Abdominal Trauma Additional Instructions: Your labs and ultrasound were unremarkable. Everything seems to be developing appropriately with your . You need to follow-up as soon as possible with an SPANISH LINGUIST and establish care. The following information is given to patients seen in the emergency department who are being discharged to home. This information is to outline your options for follow-up care. We provide all patients seen in our emergency department with a follow-up referral. The need for follow-up, as well as the timing and circumstances, are variable depending upon the specifics of your emergency department visit. If you don't have a primary care physician on staff, we will provide you with a referral. We always advise you to contact your personal physician following an emergency department visit to inform them of the circumstance of the visit and for follow-up with them and/or the need for any referrals to a consulting specialist. The emergency department will also refer you to a specialist when appropriate. This referral assures that you have the opportunity for follow-up care with a specialist. All of these measure are taken in an effort to provide you with optimal care, which includes your follow-up. Under all circumstances we always encourage you to contact your private physician who remains a resource for coordinating your care. When calling for follow-up care, please make the office aware that this follow-up is from your recent emergency room visit. If for any reason you are refused follow-up, please contact the [facility] Emergency Department at and asked to speak to the emergency department charge nurse. Please follow up with your primary care physician. If you do not have a primary care physician, see below: [facility] [address] [place] [id number] [facility] [address] [place] [address] [id number] [facility] [address] [place] [id number] Sepsis Event Note (ED) - Focused Exam Vital Signs: Vital Signs Temp Pulse Resp BP Pulse Ox 12/31/20 22:35 77 18 98 12/31/20 20:16 97 F 81 18 96/61 99 - My Orders Last 24 Hours: My Active Orders 12/31/20 20:20 Doppler Umbilical [US] Stat - Assessment/Plan Last 24 Hours: My Active Orders 12/31/20 20:20 Doppler Umbilical [US] Stat
[2020-12-31 21:17] LABS: BLOOD UREA NITROGEN,BUN 7 mg/dL (7.0-18.0); CARBON DIOXIDE,CO2 27.6 mmol/L (21.0-32.0); CHLORIDE,CL 104 mmol/L (98-107); GLUCOSE RANDOM 83 mg/dL (74-106); POTASSIUM,K 3.5 mmol/L (3.5-5.1); SODIUM,NA 136 mmol/L (136-145)
--- NOTE | 2021-01-03 16:33 | US ---
HISTORY: Struck left abdomen during fall. No care. Dates uncertain. COMPARISON: None available of this gestation. TECHNIQUE: Ultrasound examination of the is performed with transabdominal technique. FINDINGS: A single intrauterine gestation is seen in cephalic presentation with regular cardiac activity at 128 beats per minute. The placenta is posterior and is free of the cervical os. The placental grade is I and the amniotic fluid volume is normal. Single deepest vertical pocket: Normal at 4.5 cm. Cervical length is normal at 5.0 centimeters and there is no sign of cervical dilatation. BPD: 4.7 cm 20 weeks 0 days HC: 17.4 cm 20 weeks 0 days AC: 14.8 cm 20 weeks 1 day FL: 2.9 cm 19 weeks 0 days The estimated age by ultrasound is 19 weeks 6 days, with an estimated date of delivery of 05/21/2021. The ultrasound ratios are normal. The estimated weight is 300 grams. The umbilical artery Doppler ratio is 4.5 normal, just above the 50th percentile of 4.1 at and well below the 95th percentile of 5.9. The anatomic survey demonstrates normal appearing intracranial structures with a normal septum pellucidum and normal cerebellum. The nuchal thickness is normal at 4 mm, and the lateral ventricle is normal in diameter at 9 mm. The upper lip, 4 chamber heart, left and right ventricular outflow tracts, diaphragm, stomach, cord insertion site, 3-vessel cord, kidneys, bladder and spine are normal in appearance. IMPRESSION: Single intrauterine gestation in cephalic presentation with regular cardiac activity. Estimated gestational age is 19 weeks 6 days. Normal umbilical artery Doppler ratio of 4.5. Dictated by Baldev Moreira MD @ 12/31/2020 10:55:[address] Baldev Moreira @ Dec 31 2020 10:55PM Dictated by: Baldev Moreira MD 12/31/20 at 22 55 MTDD
== END 2020-12-31 23:10 ==
LOC: MW.ED 20:15
DX: O9A.23 Injury, poisoning and certain other consequences of external causes complicating the puerperium (principal); S39.91XA Unspecified injury of abdomen, initial encounter; Z3A.01 Less than 8 weeks gestation of pregnancy; W18.09XA Striking against other object with subsequent fall, initial encounter
CPT/HCPCS: 36415; 76805; 76820; 80053; 84702; 85025; 86900; 86901; 99284; A9270; 99283

== ENCOUNTER 2021-06-06 19:40 | Inpatient (IN) | payer SELFPAY ==
[2021-06-06] MEDS ORDERED: Water For Irrigation,Sterile 1,000 ML Container IRR PRN (20:22)
[2021-06-06] MEDS ORDERED: Tranexamic Acid 1,000 MG in Sodium Chloride 0.9% 100 ML IV PRN (20:22)
[2021-06-06] MEDS ORDERED: Methylergonovine 0.2 MG/1 ML Amp IM PRN (20:22)
[2021-06-06] MEDS ORDERED: Carboprost Tromethamine 250 MCG/1 ML Amp IM PRN (20:22)
[2021-06-06] MEDS ORDERED: Sodium Chloride 0.9% 10 ML Syringe FLUSH PRN (20:22)
[2021-06-06] MEDS ORDERED: Nalbuphine 10 MG/1 ML Vial IVPUSH PRN (20:22)
[2021-06-06] MEDS ORDERED: Misoprostol 200 MCG Tab PO PRN (20:22)
[2021-06-06] MEDS ORDERED: Lidocaine 1% 50 ML MDV INJECT PRN (20:22)
[2021-06-06] MEDS ORDERED: Sodium Chloride 0.9% 2.5 ML Syringe FLUSH PRN (20:22)
[2021-06-06] MEDS ORDERED: Butorphanol 1 MG/ML SDV IVPUSH PRN (20:22)
[2021-06-06] MEDS ORDERED: Sodium Chloride 0.9% 10 ML SDV IV PRN (20:22)
[2021-06-06] MEDS: Lactated Ringers 1,000 ML IV SCH ×3 (20:30→22:32)
[2021-06-06] MEDS ORDERED: Oxytocin/0.9 % Sodium Chloride 30 UNIT/500 ML BAG IV SCH (20:30)
[2021-06-06] MEDS ORDERED: ceFAZolin 2 GM in Premix Bag 1 BAG IV STA (21:00)
--- NOTE | 2021-06-06 21:16 | PCM.LDHP ---
L&D History of Present Illness - General Date of Service: 06/06/21 Admit Problem/Dx: Patient Status Order with Admit Dx/Problem 06/06/21 20:01 Patient Status [ADT] Routine Admission Diagnosis/Problem Admission Diagnosis/Problem Source of Information: Patient History Limitations: Reports: No Limitations - History of Present Illness Introduction:: Contractions began roughly 1-2 hours ago, increasing in intensity. Denies vaginal bleeding, leakage of fluid. Feeling good movement. Has not received care this . 12/31/2020 US: EGA 19 weeks 6 days, KAYA 05/21/2021, anatomic survey normal - Related Data Allergies/Adverse Reactions: Allergies Allergy/AdvReac Type Severity Reaction Status Date / Time No Known Allergies Allergy Verified 12/31/20 20:24 Home Medications: Home Meds . [No Known Home Meds] 12/31/20 [History] Past Medical History - Past Health History Medical/Surgical History: Denies Medical/Surgical History HEENT History: Reports: None Cardiovascular History: Reports: None Respiratory History: Reports: None Gastrointestinal History: Reports: GERD Genitourinary History: Reports: None TURBINE ENGINEER History: Reports: : 3 Para: 2 ( x2) Musculoskeletal History: Reports: None Neurological History: Reports: None Psychiatric History: Reports: None Other Psychiatric History: Positive drug screen in June 2017. Endocrine/Metabolic History: Reports: None Insulin Pump Model and Patient Case Coordinator: None Hematologic History: Reports: None Immunologic History: Reports: None Oncologic (Cancer) History: Reports: None Dermatologic History: Reports: None - Infectious Disease History Infectious Disease History: Reports: None - Past Surgical History Head Surgeries/Procedures: Reports: None Social & Family History - Family History HEENT: Reports: Impaired Vision, Macular Degeneration Cardiac: Reports: NM Respiratory: Reports: Asthma OBGYN: Reports: Musculoskeletal: Reports: Gout Neurological: Reports: CVA Endocrine/Metabolic: Reports: Diabetes, type II, Hypothyroidism, Obesity/MBI 30+ Dermatologic: Reports: Psoriasis Oncologic: Reports: Lung - Tobacco Use Tobacco Use Status *Q: Current Every Day Tobacco User (1-2 cigarettes/day) - Caffeine Use Caffeine Use: Reports: Coffee, Soda - Alcohol Use Alcohol Use History: No - Recreational Drug Use Recreational Drug Use: No H&P Review of Systems - Review of Systems: Review Of Systems: See Below General: Reports: No Symptoms HEENT: Reports: No Symptoms Pulmonary: Reports: No Symptoms Cardiovascular: Reports: No Symptoms Gastrointestinal: Reports: Abdominal Pain (contractions) Genitourinary: Reports: No Symptoms Musculoskeletal: Reports: No Symptoms Skin: Reports: No Symptoms Psychiatric: Reports: No Symptoms Neurological: Reports: No Symptoms Hematologic/Lymphatic: Reports: No Symptoms Immunologic: Reports: No Symptoms L&D Exam - Exam Exam: See Below - OB Specific Contraction Intensity: Moderate to Strong Movement: Active Heart Tones per Min: 120 Heart Rate (FHR) Variability: Moderate (6-25 bpm) Presentation: Vertex - Menchaca Score Menchaca Score Effacement: >80% Menchaca Score Dilation: > 5 cm - Exam General: Alert, Oriented Neck: Supple Lungs: Normal Respiratory Effort GI/Abdominal Exam: Soft, Non-Tender, Other (gravid) Back Exam: Normal Inspection, Full Range of Motion Extremities: Non-Tender, No Pedal Edema Skin: Warm, Dry, Intact Psychiatric: Alert, Normal Affect, Normal Mood - Patient Data Lab Results Last 24 hrs: Laboratory Results - last 24 hr 06/06/21 06/06/21 06/06/21 Range/Units 19:25 19:35 20:30 WBC 6.96 (4.0-11.0) K/uL RBC 4.58 (4.30-5.90) M/uL Hgb 12.1 (12.0-16.0) g/dL Hct 36.6 (36.0-46.0) % MCV 79.9 L (80.0-98.0) fL MCH 26.4 L (27.0-32.0) pg MCHC 33.1 (31.0-37.0) g/dL RDW Std Deviation 41.4 (28.0-62.0) fl RDW Coeff of Gloria 14 (11.0-15.0) % Plt Count 222 (150-400) K/uL MPV 9.90 (7.40-12.00) fL Nucleated RBC % 0.0 /100WBC Nucleated RBCs # 0 K/uL Urine Color YELLOW Urine Appearance HAZY Urine pH 8.0 (5.0-8.0) Ur Specific [place] 1.015 (1.001-1.035) Urine Protein TRACE H (NEGATIVE) mg/dL Urine Glucose (UA) NEGATIVE (NEGATIVE) mg/dL Urine Ketones NEGATIVE (NEGATIVE) mg/dL Urine Occult Blood SMALL H (NEGATIVE) Urine Nitrite NEGATIVE (NEGATIVE) Urine Bilirubin NEGATIVE (NEGATIVE) Urine Urobilinogen 1.0 (<2.0) EU/dL Ur Leukocyte Esterase NEGATIVE (NEGATIVE) Urine Opiates Screen NEGATIVE (NEGATIVE) Ur Oxycodone Screen NEGATIVE (NEGATIVE) Urine Methadone Screen NEGATIVE (NEGATIVE) Ur Barbiturates Screen NEGATIVE (NEGATIVE) Ur Phencyclidine Scrn NEGATIVE (NEGATIVE) Ur Amphetamine Screen NEGATIVE (NEGATIVE) U Methamphetamines Scrn NEGATIVE (NEGATIVE) U Benzodiazepines Scrn NEGATIVE (NEGATIVE) U Cocaine Metab Screen NEGATIVE (NEGATIVE) U Marijuana (THC) Screen NEGATIVE (NEGATIVE) Result Diagrams: 06/06/21 20:30 - Problem List (1) Uterine contractions SNOMED Code(s): 606619783 ICD Code: O47.9 - FALSE LABOR, UNSPECIFIED Status: Acute Current Visit: Yes Problem List Initiated/Reviewed/Updated: Yes Orders Last 24hrs: Active Orders 24 hr Category Date Time Status Patient Status [ADT] Routine ADT 06/06/21 20:01 Active Heart Rate [RC] CONTINUOUS Care 06/06/21 20:24 Ordered Heart Rate [RC] CONTINUOUS Care 06/06/21 20:58 Active Non Stress Test [RC] PER UNIT ROUTINE Care 06/06/21 20:01 Active Notify Provider [RC] PRN Care 06/06/21 20:24 Ordered Up ad Krystin [RC] ASDIRECTED Care 06/06/21 20:01 Active Vaginal Exam [RC] Click to Edit Care 06/06/21 20:01 Active Vaginal Exam [RC] PRN Care 06/06/21 20:24 Ordered Vital Signs [RC] PER UNIT ROUTINE Care 06/06/21 20:01 Active CBC W/O DIFF,HEMOGRAM [HEME] Routine Lab 06/06/21 20:24 Ordered CBC WITH AUTO DIFF [HEME] Routine Lab 06/06/21 20:43 Stop Req CHLAMYDIA AND GONORRHEA BY TMA Routine Lab 06/06/21 20:24 Stop Req CHLAMYDIA AND GONORRHEA BY TMA Routine Lab 06/06/21 20:43 Stop Req CHLAMYDIA AND GONORRHEA BY TMA Routine Lab 06/06/21 20:58 Ordered GROUP B STREP BY PCR [MOLEC] Routine Lab 06/06/21 20:24 Stop Req GROUP B STREP BY PCR [MOLEC] Routine Lab 06/06/21 20:43 Stop Req GROUP B STREP BY PCR [MOLEC] Routine Lab 06/06/21 20:58 Ordered HEPATITIS B SURFACE AB QUANT [CHEM] Routine Lab 06/06/21 20:43 Stop Req HEPATITIS B SURFACE AG [CHEM] Routine Lab 06/06/21 20:30 Received HEPATITIS C ANTIBODY WITH REFL [CHEM] Routine Lab 06/06/21 20:30 Received HIV12 AG/AB 4TH GEN [CHEM] Routine Lab 06/06/21 20:24 Stop Req HIV12 AG/AB 4TH GEN [CHEM] Routine Lab 06/06/21 20:30 Received HIV12 AG/AB 4TH GEN [CHEM] Routine Lab 06/06/21 20:43 Stop Req RPR (SYPHILIS SERO) W/ RFLX [REF] Routine Lab 06/06/21 20:24 Stop Req RPR (SYPHILIS SERO) W/ RFLX [REF] Routine Lab 06/06/21 20:30 Received RUBELLA ANTIBODY IGG [CHEM] Routine Lab 06/06/21 20:30 Received TYPE AND SCREEN [BBK] Routine Lab 06/06/21 20:30 Received UA RFX PHILOMENA AND CULT IF INDIC [URIN] Routine Lab 06/06/21 20:58 Ordered Butorphanol [Stadol] Med 06/06/21 20:22 Ordered 1 mg IVPUSH Q1H PRN Carboprost Tromethamine [Hemabate DS] Med 06/06/21 20:22 Ordered 250 mcg IM ASDIRECTED PRN Lactated Ringers @ 150 MLS/HR(1000ml) Med 06/06/21 20:30 Ordered Lactated Ringers [Ringers, Lactated] 1,000 ml IV ASDIRECTED Lidocaine 1% [Xylocaine 1%] Med 06/06/21 20:22 Ordered 50 ml INJECT ONETIME PRN Methylergonovine [Methergine] Med 06/06/21 20:22 Ordered 0.2 mg IM ASDIRECTED PRN Nalbuphine [Nubain] Med 06/06/21 20:22 Ordered 10 mg IVPUSH Q1H PRN Oxytocin/0.9 % Sodium Chloride [Oxytocin 30 Unit in NS Med 06/06/21 20:30 Ordered 0.9% 500 ML Premix] 30 unit in 500 ml IV TITRATE Sodium Chloride 0.9% [Normal Saline] Med 06/06/21 20:22 Ordered 10 ml IV ASDIRECTED PRN Sodium Chloride 0.9% [Saline Flush] Med 06/06/21 20:22 Ordered 10 ml FLUSH ASDIRECTED PRN Sodium Chloride 0.9% [Saline Flush] Med 06/06/21 20:22 Ordered 2.5 ml FLUSH ASDIRECTED PRN Tranexamic Acid [Cyklokapron] 1,000 mg Med 06/06/21 20:22 Ordered Sodium Chloride 0.9% [Normal Saline] 100 ml IV ONETIME Water For Irrigation,Sterile [Sterile Water for Med 06/06/21 20:22 Ordered Irrigation] 1,000 ml IRR ASDIRECTED PRN ceFAZolin [Ancef 2 GM/50 ML] 2 gm Med 06/06/21 20:42 Ordered Premix Bag 1 bag IV ONETIME miSOPROStoL [Cytotec] Med 06/06/21 20:22 Ordered 200 mcg PO ONETIME PRN Scalp Electrode [WOMSER] Per Unit Routine Oth 06/06/21 20:24 Ordered Peripheral IV Insertion Adult [OM.PC] Routine Oth 06/06/21 20:24 Ordered Resuscitation Status Routine Resus Stat 06/06/21 20:00 Ordered Medication Orders Butorphanol Tartrate (Butorphanol 1 Mg/Ml Sdv) 1 mg IVPUSH Q1H PRN PRN Reason: Pain (severe 7-10) Carboprost Tromethamine (Carboprost Tromethamine 250 Mcg/1 Ml Amp) 250 mcg IM ASDIRECTED PRN PRN Reason: Post Hemorrhage Lactated Ringer's (Ringers, Lactated) 1,000 mls @ 150 mls/hr IV ASDIRECTED BRISEIDA Oxytocin/Sodium Chloride (Oxytocin 30 Unit In Ns 0.9% 500 Ml Premix) 30 unit in 500 mls @ 999 mls/hr IV TITRATE BRISEIDA Tranexamic Acid 1,000 mg/ (Sodium Chloride) 110 mls @ 660 mls/hr IV ONETIME PRN PRN Reason: Bleeding Cefazolin Sodium/Dextrose 2 gm (/ Premix) 50 mls @ 100 mls/hr IV ONETIME STA Stop: 06/06/21 21:11 Lidocaine HCl (Lidocaine 1% 50 Ml Mdv) 50 ml INJECT ONETIME PRN PRN Reason: Laceration repair Methylergonovine Maleate (Methylergonovine 0.2 Mg/1 Ml Amp) 0.2 mg IM ASDIRECTED PRN PRN Reason: Post Hemorrhage Misoprostol (Misoprostol 200 Mcg Tab) 200 mcg PO ONETIME PRN PRN Reason: Post Hemorrhage Nalbuphine HCl (Nalbuphine 10 Mg/1 Ml Vial) 10 mg IVPUSH Q1H PRN PRN Reason: Pain (severe 7-10) Sodium Chloride (Sodium Chloride 0.9% 10 Ml Syringe) 10 ml FLUSH ASDIRECTED PRN PRN Reason: Keep Vein Open Sodium Chloride (Sodium Chloride 0.9% 2.5 Ml Syringe) 2.5 ml FLUSH ASDIRECTED PRN PRN Reason: Keep Vein Open Sodium Chloride (Sodium Chloride 0.9% 10 Ml Sdv) 10 ml IV ASDIRECTED PRN PRN Reason: IV Use Sterile Water (Water For Irrigation,Sterile 1,000 Ml Container) 1,000 ml IRR ASDIRECTED PRN PRN Reason: delivery Assessment/Plan Comment:: 25yo @ 42w2d by 19w6d , in active labor 1. Admit to L&D for expectant management of labor 2. No care: Obtain labs 3. GBS unknown: GBS negative in prior , per guidelines do not treat, discussed with patient will likely be monitored for 48 hours post- delivery 4. Epidural as desired 5. Reviewed risks of delivery, including but not limited to, infection, bleeding with possible need for medications/surgery/transfusion, need for vacuum or C- section, injury to patient or baby, and of patient or baby. Patient voiced understanding and agrees to proceed.
[2021-06-06] MEDS ORDERED: Ondansetron 4 MG/2 ML SDV ONE (21:30)
[2021-06-06] MEDS ORDERED: Ondansetron 4 MG/2 ML SDV IVPUSH STA (21:36)
[2021-06-06] MEDS ORDERED: Ropivacaine HCl/PF 200 ML ONE (22:00)
--- NOTE | 2021-06-06 22:26 | PCM.PREANE ---
Preanesthetic Assessment - Anesthesia/Transfusion/Family Hx Anesthesia History: Prior Anesthesia Without Reaction Family History of Anesthesia Reaction: No Transfusion History: No Prior Transfusion(s) - Review of Systems General: No Symptoms Pulmonary: No Symptoms Cardiovascular: No Symptoms Gastrointestinal: Other (GERD) Other: Reports: None - Physical Assessment NPO Status Date: 06/06/21 NPO Status Time: 19:00 ASA Class: 2 Mental Status: Alert & Oriented x3 Airway Class: Mallampati = 2 Dentition: Reports: Normal Dentition Thyro-Mental Finger Breadths: 3 Mouth Opening Finger Breadths: 2 ROM/Head Extension: Full Lungs: Clear to Auscultation, Normal Respiratory Effort Cardiovascular: Regular Rate, Regular Rhythm - Lab Values: Laboratory Last Values WBC 6.96 K/uL (4.0-11.0) 06/06/21 20: RBC 4.58 M/uL (4.30-5.90) 06/06/21 20:30 Hgb 12.1 g/dL (12.0-16.0) 06/06/21 20:30 Hct 36.6 % (36.0-46.0) 06/06/21 20:30 MCV 79.9 fL (80.0-98.0) L 06/06/21 20:30 MCH 26.4 pg (27.0-32.0) L 06/06/21 20: MCHC 33.1 g/dL (31.0-37.0) 06/06/21 20:30 RDW Std Deviation 41.4 fl (28.0-62.0) 06/06/21 20:30 RDW Coeff of Gloria 14 % (11.0-15.0) 06/06/21 20:30 Plt Count 222 K/uL (150-400) 06/06/21 20:30 MPV 9.90 fL (7.40-12.00) 06/06/21 20:30 Nucleated RBC % 0.0 /100WBC 06/06/21 20:30 Nucleated RBCs # 0 K/uL 06/06/21 20:30 Urine Color YELLOW 06/06/21 19:35 Urine Appearance HAZY 06/06/21 19:35 Urine pH 8.0 (5.0-8.0) 06/06/21 19:35 Ur Specific [place] 1.015 (1.001-1.035) 06/06/21 19:35 Urine Protein TRACE mg/dL (NEGATIVE) H 06/06/21 19:35 Urine Glucose (UA) NEGATIVE mg/dL (NEGATIVE) 06/06/21 19:35 Urine Ketones NEGATIVE mg/dL (NEGATIVE) 06/06/21 19:35 Urine Occult Blood SMALL (NEGATIVE) H 06/06/21 19:35 Urine Nitrite NEGATIVE (NEGATIVE) 06/06/21 19:35 Urine Bilirubin NEGATIVE (NEGATIVE) 06/06/21 19:35 Urine Urobilinogen 1.0 EU/dL (<2.0) 06/06/21 19:35 Ur Leukocyte Esterase NEGATIVE (NEGATIVE) 06/06/21 19:35 Urine Opiates Screen NEGATIVE (NEGATIVE) 06/06/21 19:25 Ur Oxycodone Screen NEGATIVE (NEGATIVE) 06/06/21 19:25 Urine Methadone Screen NEGATIVE (NEGATIVE) 06/06/21 19:25 Ur Barbiturates Screen NEGATIVE (NEGATIVE) 06/06/21 19:25 Ur Phencyclidine Scrn NEGATIVE (NEGATIVE) 06/06/21 19:25 Ur Amphetamine Screen NEGATIVE (NEGATIVE) 06/06/21 19:25 U Methamphetamines Scrn NEGATIVE (NEGATIVE) 06/06/21 19:25 U Benzodiazepines Scrn NEGATIVE (NEGATIVE) 06/06/21 19:25 U Cocaine Metab Screen NEGATIVE (NEGATIVE) 06/06/21 19:25 U Marijuana (THC) Screen NEGATIVE (NEGATIVE) 06/06/21 19:25 Blood Type A POSITIVE 06/06/21 20:30 Antibody Screen NEGATIVE 06/06/21 20:30 - Allergies Allergies/Adverse Reactions: Allergies Allergy/AdvReac Type Severity Reaction Status Date / Time No Known Allergies Allergy Verified 12/31/20 20:24 - Blood Blood Available: Yes Product(s) Available: PRBC (Type and Screen) - Anesthesia Plan Pre-Op Medication Ordered: None - Acknowledgements Anesthesia Type Planned: Epidural Pt an Appropriate Candidate for the Planned Anesthesia: Yes Alternatives and Risks of Anesthesia Discussed w Pt/Guardian: Yes Pt/Guardian Understands and Agrees with Anesthesia Plan: Yes Additional Comments: pt is 42 weeks gestation according to Dr. Duran with no care given. 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 Endocrine/Metabolic History: Reports: None Hematologic History: Reports: None Immunologic History: Reports: None Oncologic (Cancer) History: Reports: None Dermatologic History: Reports: None - Infectious Disease History Infectious Disease History: Reports: None - Past Surgical History Head Surgeries/Procedures: Reports: None - SUBSTANCE USE Tobacco Use Status *Q: Current Every Day Tobacco User (1-2 cigarettes/day) Recreational Drug Use History: No - HOME MEDS Home Medications: Home Meds . [No Known Home Meds] 12/31/20 [History] - CURRENT (IN HOUSE) MEDS Current Meds: Current Medications Butorphanol Tartrate (Butorphanol 1 Mg/Ml Sdv) 1 mg IVPUSH Q1H PRN PRN Reason: Pain (severe 7-10) Carboprost Tromethamine (Carboprost Tromethamine 250 Mcg/1 Ml Amp) 250 mcg IM ASDIRECTED PRN PRN Reason: Post Hemorrhage Lactated Ringer's (Ringers, Lactated) 1,000 mls @ 150 mls/hr IV ASDIRECTED [facility] Last Admin: 06/06/21 20:30 Dose: 999 mls/hr Documented by: Oxytocin/Sodium Chloride (Oxytocin 30 Unit In Ns 0.9% 500 Ml Premix) 30 unit in 500 mls @ 999 mls/hr IV TITRATE [facility] Tranexamic Acid 1,000 mg/ (Sodium Chloride) 110 mls @ 660 mls/hr IV ONETIME PRN PRN Reason: Bleeding Cefazolin Sodium/Dextrose (Ancef 1 Gm/50 Ml) 50 mls @ 100 mls/hr IV Q8H [facility] Lidocaine HCl (Lidocaine 1% 50 Ml Mdv) 50 ml INJECT ONETIME PRN PRN Reason: Laceration repair Methylergonovine Maleate (Methylergonovine 0.2 Mg/1 Ml Amp) 0.2 mg IM ASDIRECTED PRN PRN Reason: Post Hemorrhage Misoprostol (Misoprostol 200 Mcg Tab) 200 mcg PO ONETIME PRN PRN Reason: Post Hemorrhage Nalbuphine HCl (Nalbuphine 10 Mg/1 Ml Vial) 10 mg IVPUSH Q1H PRN PRN Reason: Pain (severe 7-10) Sodium Chloride (Sodium Chloride 0.9% 10 Ml Syringe) 10 ml FLUSH ASDIRECTED PRN PRN Reason: Keep Vein Open Sodium Chloride (Sodium Chloride 0.9% 2.5 Ml Syringe) 2.5 ml FLUSH ASDIRECTED PRN PRN Reason: Keep Vein Open Sodium Chloride (Sodium Chloride 0.9% 10 Ml Sdv) 10 ml IV ASDIRECTED PRN PRN Reason: IV Use Sterile Water (Water For Irrigation,Sterile 1,000 Ml Container) 1,000 ml IRR ASDIRECTED PRN PRN Reason: delivery Discontinued Medications Cefazolin Sodium/Dextrose 2 gm (/ Premix) 50 mls @ 100 mls/hr IV ONETIME STA Stop: 06/06/21 21:29 Ropivacaine (Naropin 0.2%) Confirm Administered Dose 200 mls @ as directed .ROUTE .STK-MED ONE Stop: 06/06/21 22:01 Ondansetron HCl (Ondansetron 4 Mg/2 Ml Sdv) Confirm Administered Dose 4 mg .ROUTE .STK-MED ONE Stop: 06/06/21 21:31 Ondansetron HCl (Ondansetron 4 Mg/2 Ml Sdv) 4 mg IVPUSH Q6H STA Stop: 06/06/21 21:37
[2021-06-06] MEDS ORDERED: ePHEDrine 50 MG/ML SDV IVPUSH PRN (22:40)
[2021-06-06] MEDS ORDERED: Ropivacaine 0.2% 2MG/ML 200 ML Bag EPIDUR SCH (22:40)
--- NOTE | 2021-06-06 22:50 | PCM.SN.2 ---
Time Documentation - Pre-Procedure Checklist Attending Provider Aware: Yes Chart Reviewed: Yes Consent Signed: Yes Labs Reviewed: Yes VS/FHR Reviewed: Yes Patient Identification Confirmation Method: Reports: Chart Visual, Verbal Patient Pt an Appropriate Candidate for the Planned Anesthesia: Yes Alternatives and Risks of Anesthesia Discussed w Pt/Guardian: Yes - Procedure Procedure Start Date: 06/06/21 Procedure Start Time: 21:[address]: Reports: Blood Pressure, Heart Rate, SPO2 Functional IV: Yes Safety Measures: Reports: Patient Identified, Procedure Verified, Site Verified, Procedure Time Out Patient Position: Reports: Sitting Prep: Reports: Betadine x3 Local Anesthetic: Reports: Intradermal Wheal w Lidocaine 1% (3ML) Needle: Reports: 17 g Touhy Approach: Reports: Midline Technique: Reports: KOLBY Glass Syringe KOLBY Needle Depth (cm): 4 cm Parasthesia: Reports: None Fluid Obtained: Reports: None Catheter Depth at Skin (cm): 12 cm Test Dose Time: 21:55 Test Dose Medication: Reports: Lidocaine 1.5% w Epinephrine 1:200,000 (5 ml) Test Dose Response: Reports: Negative Loading Dose Time: 22:04 Loading Dose Medication: Ropivivaine 0.2% Loading Dose Patient Position: Supine Continuous Infusion Start Time: 22:05 Continuous Infusion Medication: Ropivivaine 0.2% Continuous Infusion Rate: 8 Continuous Infusion PCS Bolus Option: 4 Continuous Infusion Lockout Dose (cc/hr): 15 Patient Position Post Placement: Reports: Supline/MADDI Post-procedure Pain Level: 3 Level Achieved: t6 VS and FHR Monitored in Unit Post Placement: Yes Procedure End Date: 06/06/21 Procedure End Time: 22:40 Procedure Comment: Sterile technique used throughout
--- NOTE | 2021-06-06 22:50 | PCM.POSTAN ---
POST ANESTHESIA ASSESSMENT - MENTAL STATUS Mental Status: Alert, Oriented - RESPIRATORY Respiratory Status: Respiratory Rate WNL, Airway Patent, O2 Saturation Stable - CARDIOVASCULAR CV Status: Pulse Rate WNL, Blood Pressure Stable - GASTROINTESTINAL GI Status: No Symptoms - POST OP HYDRATION Hydration Status: Adequate & Stable
[2021-06-06] MEDS ORDERED: Benzocaine/Menthol 20%-0.5% Spray 78 GM Cannister TOP PRN (22:56)
[2021-06-06] MEDS ORDERED: Lanolin 100% Cream 7 GM Tube TOP PRN (22:56)
[2021-06-06] MEDS ORDERED: Witch Hazel Medicated Pads 40/Jar TOP PRN (22:56)
[2021-06-06] MEDS ORDERED: Docusate Sodium 100 MG Cap PO PRN (22:56)
[2021-06-06] MEDS ORDERED: Bisacodyl 10 MG Supp RECTAL PRN (22:56)
--- NOTE | 2021-06-06 23:02 | PCM.DEL ---
L & D Note - General Info Date of Service: 06/06/21 Mother's Due Date: 05/21/21 (By 19 week 6 day ) - Delivery Note Labor: Spontaneous Delivery Outcome: Livebirth Infant Delivery Method: Spontaneous Vaginal Delivery-Single Delivery Mode: Vacuum Extraction Presentation: Right Occiput Anterior (CRISTINA) Nuchal Cord: None Anesthesia Type: Epidural Amniotic Fluid Description: Clear (terminal meconium) Episiotomy Type: None Laceration: None Placenta: Intact, Spontaneous Cord: 3 Vessels Estimated Blood Loss: 250 Resuscitation Needed: Yes [place]: Suctioned, Bulb Syringe, Stimulated, Warmed Provider: Aleisha Cid Score 1 min: 8 Score 5 min: 9 Delivery Comments (Free Text/Narrative):: Live male , weight 3250g Vacuum Extractor Progress Note - Alternative Labor Strategies Considered Alternative Labor Strategies Considered:: Reports: Yes Strategies Considered:: Reports: Contraction Intensity Adequate, Empty Bladder Indications Considered:: Reports: Yes Indications:: Reports: Suspicion of Immediate or Potential Compromise Time Out:: Reports: Yes - Patient Prepared Patient Prepared:: Reports: Yes Informed Consent:: Reports: Yes, Verbal Risks: Reports: Yes Risks Include:: Reports: Laceration, Maternal Injury, Other ( injury) Anesthesia/Analgesia Adequate:: Reports: Yes - Probability of Success High Probability of Success:: Reports: Yes Weight Estimated:: Reports: AGA Patient Diabetic:: Reports: No Pelvis Adequate:: Reports: Yes Position:: CRISTINA Asynclitic:: Reports: No Station:: +2 - Application Time Maximum Application Time & Number of Pop-Offs Predetermined:: Reports: Yes Maximum Pressure Maintained in Green Zone (cm Hg):: 65 Total Application Time (min): *max=20min: 90 (seconds) Number of Times Cup Disengaged:: 1 Type of Vacuum Used:: Reports: Low profile Vacuum Extraction: Successful - Exit Strategy Exit strategy available:: Reports: Yes and resuscitation teams readily available:: Reports: Yes - General Info Date of Service: 06/06/21 - Patient Data Lab Results Last 24 Hours: Laboratory Results - last 24 hr 06/06/21 06/06/21 06/06/21 Range/Units 19:25 19:35 20:30 WBC 6.96 (4.0-11.0) K/uL RBC 4.58 (4.30-5.90) M/uL Hgb 12.1 (12.0-16.0) g/dL Hct 36.6 (36.0-46.0) % MCV 79.9 L (80.0-98.0) fL MCH 26.4 L (27.0-32.0) pg MCHC 33.1 (31.0-37.0) g/dL RDW Std Deviation 41.4 (28.0-62.0) fl RDW Coeff of Gloria 14 (11.0-15.0) % Plt Count 222 (150-400) K/uL MPV 9.90 (7.40-12.00) fL Nucleated RBC % 0.0 /100WBC Nucleated RBCs # 0 K/uL Urine Color YELLOW Urine Appearance HAZY Urine pH 8.0 (5.0-8.0) Ur Specific [place] 1.015 (1.001-1.035) Urine Protein TRACE H (NEGATIVE) mg/dL Urine Glucose (UA) NEGATIVE (NEGATIVE) mg/dL Urine Ketones NEGATIVE (NEGATIVE) mg/dL Urine Occult Blood SMALL H (NEGATIVE) Urine Nitrite NEGATIVE (NEGATIVE) Urine Bilirubin NEGATIVE (NEGATIVE) Urine Urobilinogen 1.0 (<2.0) EU/dL Ur Leukocyte Esterase NEGATIVE (NEGATIVE) Urine Opiates Screen NEGATIVE (NEGATIVE) Ur Oxycodone Screen NEGATIVE (NEGATIVE) Urine Methadone Screen NEGATIVE (NEGATIVE) Ur Barbiturates Screen NEGATIVE (NEGATIVE) Ur Phencyclidine Scrn NEGATIVE (NEGATIVE) Ur Amphetamine Screen NEGATIVE (NEGATIVE) U Methamphetamines Scrn NEGATIVE (NEGATIVE) U Benzodiazepines Scrn NEGATIVE (NEGATIVE) U Cocaine Metab Screen NEGATIVE (NEGATIVE) U Marijuana (THC) Screen NEGATIVE (NEGATIVE) Blood Type Antibody Screen 06/06/21 Range/Units 20:30 WBC (4.0-11.0) K/uL RBC (4.30-5.90) M/uL Hgb (12.0-16.0) g/dL Hct (36.0-46.0) % MCV (80.0-98.0) fL MCH (27.0-32.0) pg MCHC (31.0-37.0) g/dL RDW Std Deviation (28.0-62.0) fl RDW Coeff of Gloria (11.0-15.0) % Plt Count (150-400) K/uL MPV (7.40-12.00) fL Nucleated RBC % /100WBC Nucleated RBCs # K/uL Urine Color Urine Appearance Urine pH (5.0-8.0) Ur Specific [place] (1.001-1.035) Urine Protein (NEGATIVE) mg/dL Urine Glucose (UA) (NEGATIVE) mg/dL Urine Ketones (NEGATIVE) mg/dL Urine Occult Blood (NEGATIVE) Urine Nitrite (NEGATIVE) Urine Bilirubin (NEGATIVE) Urine Urobilinogen (<2.0) EU/dL Ur Leukocyte Esterase (NEGATIVE) Urine Opiates Screen (NEGATIVE) Ur Oxycodone Screen (NEGATIVE) Urine Methadone Screen (NEGATIVE) Ur Barbiturates Screen (NEGATIVE) Ur Phencyclidine Scrn (NEGATIVE) Ur Amphetamine Screen (NEGATIVE) U Methamphetamines Scrn (NEGATIVE) U Benzodiazepines Scrn (NEGATIVE) U Cocaine Metab Screen (NEGATIVE) U Marijuana (THC) Screen (NEGATIVE) Blood Type A POSITIVE Antibody Screen NEGATIVE Med Orders - Current: Current Medications Acetaminophen (Acetaminophen 500 Mg Tab) 1,000 mg PO Q6H PRN PRN Reason: Pain (mild 1-3) Benzocaine/Menthol (Benzocaine/Menthol 20%-0.5% [place] 78 Gm Cannister) 78 gm TOP ASDIRECTED PRN PRN Reason: Perineal Comfort Measure Bisacodyl (Bisacodyl 10 Mg Supp) 10 mg RECTAL ONETIME PRN PRN Reason: Constipation Butorphanol Tartrate (Butorphanol 1 Mg/Ml Sdv) 1 mg IVPUSH Q1H PRN PRN Reason: Pain (severe 7-10) Carboprost Tromethamine (Carboprost Tromethamine 250 Mcg/1 Ml Amp) 250 mcg IM ASDIRECTED PRN PRN Reason: Post Hemorrhage Docusate Sodium (Docusate Sodium 100 Mg Cap) 100 mg PO Q12H PRN PRN Reason: Constipation Emollient Ointment (Lanolin 100% Cream 7 Gm Tube) 0 gm TOP ASDIRECTED PRN PRN Reason: Sore Nipples Lactated Ringer's (Ringers, Lactated) 1,000 mls @ 150 mls/hr IV ASDIRECTED [facility] Last Admin: 06/06/21 20:30 Dose: 999 mls/hr Documented by: Oxytocin/Sodium Chloride (Oxytocin 30 Unit In Ns 0.9% 500 Ml Premix) 30 unit in 500 mls @ 999 mls/hr IV TITRATE [facility] Tranexamic Acid 1,000 mg/ (Sodium Chloride) 110 mls @ 660 mls/hr IV ONETIME PRN PRN Reason: Bleeding Cefazolin Sodium/Dextrose (Ancef 1 Gm/50 Ml) 50 mls @ 100 mls/hr IV Q8H [facility] Ibuprofen (Ibuprofen 800 Mg Tab) 800 mg PO Q8H PRN PRN Reason: Cramping Lidocaine HCl (Lidocaine 1% 50 Ml Mdv) 50 ml INJECT ONETIME PRN PRN Reason: Laceration repair Methylergonovine Maleate (Methylergonovine 0.2 Mg/1 Ml Amp) 0.2 mg IM ASDIRECTED PRN PRN Reason: Post Hemorrhage Misoprostol (Misoprostol 200 Mcg Tab) 200 mcg PO ONETIME PRN PRN Reason: Post Hemorrhage Nalbuphine HCl (Nalbuphine 10 Mg/1 Ml Vial) 10 mg IVPUSH Q1H PRN PRN Reason: Pain (severe 7-10) Oxycodone HCl (Oxycodone 5 Mg Tab) 5 mg PO Q2H PRN PRN Reason: Pain (severe 7-10) Sodium Chloride (Sodium Chloride 0.9% 10 Ml Syringe) 10 ml FLUSH ASDIRECTED PRN PRN Reason: Keep Vein Open Sodium Chloride (Sodium Chloride 0.9% 2.5 Ml Syringe) 2.5 ml FLUSH ASDIRECTED PRN PRN Reason: Keep Vein Open Sodium Chloride (Sodium Chloride 0.9% 10 Ml Sdv) 10 ml IV ASDIRECTED PRN PRN Reason: IV Use Sterile Water (Water For Irrigation,Sterile 1,000 Ml Container) 1,000 ml IRR ASDIRECTED PRN PRN Reason: delivery Witch Akanksha (Witch Akanksha Medicated Pads 40/Jar) 1 pad TOP ASDIRECTED PRN PRN Reason: comfort care Discontinued Medications Cefazolin Sodium/Dextrose 2 gm (/ Premix) 50 mls @ 100 mls/hr IV ONETIME STA Stop: 06/06/21 21:29 Ropivacaine (Naropin 0.2%) Confirm Administered Dose 200 mls @ as directed .ROUTE .STK-MED ONE Stop: 06/06/21 22:01 Ondansetron HCl (Ondansetron 4 Mg/2 Ml Sdv) Confirm Administered Dose 4 mg .ROUTE .STK-MED ONE Stop: 06/06/21 21:31 Ondansetron HCl (Ondansetron 4 Mg/2 Ml Sdv) 4 mg IVPUSH Q6H STA Stop: 06/06/21 21:37 - Problem List & Annotations (1) Vacuum extraction, delivered, current hospitalization SNOMED Code(s): 757208261 Code(s): O66.5 - ATTEMPTED APPLICATION OF VACUUM EXTRACTOR AND FORCEPS Status: Acute Current Visit: No - Problem List Review Problem List Initiated/Reviewed/Updated: Yes - My Orders Last 24 Hours: My Active Orders 06/06/21 05:00 ceFAZolin [Ancef 1 GM/50 ML] 50 ml IV Q8H 06/06/21 19:25 CULTURE URINE [MREF] Routine 06/06/21 20:00 Resuscitation Status Routine 06/06/21 20:01 Patient Status [ADT] Routine Non Stress Test [RC] PER UNIT ROUTINE Up ad Krystin [RC] ASDIRECTED Vaginal Exam [RC] Click to Edit Vital Signs [RC] PER UNIT ROUTINE 06/06/21 20:22 Butorphanol [Stadol] 1 mg IVPUSH Q1H PRN Carboprost Tromethamine [Hemabate DS] 250 mcg IM ASDIRECTED PRN Lidocaine 1% [Xylocaine 1%] 50 ml INJECT ONETIME PRN Methylergonovine [Methergine] 0.2 mg IM ASDIRECTED PRN Nalbuphine [Nubain] 10 mg IVPUSH Q1H PRN Sodium Chloride 0.9% [Normal Saline] 10 ml IV ASDIRECTED PRN Sodium Chloride 0.9% [Saline Flush] 10 ml FLUSH ASDIRECTED PRN Sodium Chloride 0.9% [Saline Flush] 2.5 ml FLUSH ASDIRECTED PRN Tranexamic Acid [Cyklokapron] 1,000 mg Sodium Chloride 0.9% [Normal Saline] 100 ml IV ONETIME Water For Irrigation,Sterile [Sterile Water for Irrigation] 1,000 ml IRR ASDIRECTED PRN miSOPROStoL [Cytotec] 200 mcg PO ONETIME PRN 06/06/21 20:24 Heart Rate [RC] CONTINUOUS Notify Provider [RC] PRN Vaginal Exam [RC] PRN Scalp Electrode [WOMSER] Per Unit Routine Peripheral IV Insertion Adult [OM.PC] Routine 06/06/21 20:30 HEPATITIS B SURFACE AG [CHEM] Routine HEPATITIS C ANTIBODY WITH REFL [CHEM] Routine HIV12 AG/AB 4TH GEN [CHEM] Routine RPR (SYPHILIS SERO) W/ RFLX [REF] Routine RUBELLA ANTIBODY IGG [CHEM] Routine Lactated Ringers [Ringers, Lactated] 1,000 ml IV ASDIRECTED Oxytocin/0.9 % Sodium Chloride [Oxytocin 30 Unit in NS 0.9% 500 ML Premix] 30 unit in 500 ml IV TITRATE 06/06/21 20:58 Heart Rate [RC] CONTINUOUS CHLAMYDIA AND GONORRHEA BY TMA Routine GROUP B STREP BY PCR [MOLEC] Routine 06/06/21 22:56 Patient Status [ADT] Routine May Shower [RC] ASDIRECTED Notify Provider Vital Signs [RC] ASDIRECTED Up ad Krystin [RC] ASDIRECTED Vital Signs [RC] PER UNIT ROUTINE Consult to Case Management/Commuter Pilot [CONS] Routine BLOOD GAS ARTERIAL UMBILICAL [BG] Urgent BLOOD GAS VENOUS UMBILICAL [BG] Urgent Acetaminophen [Tylenol Extra Strength] 1,000 mg PO Q6H PRN Benzocaine/Menthol [Dermoplast Pain Relief 20%-0.5% [place]] 78 gm TOP ASDIRECTED PRN Docusate Sodium [Colace] 100 mg PO Q12H PRN Ibuprofen [Motrin] 800 mg PO Q8H PRN Lanolin [Lansinoh HPA] See Dose Instructions TOP ASDIRECTED PRN bisacodyL [Dulcolax] 10 mg RECTAL ONETIME PRN oxyCODONE 5 mg PO Q2H PRN witch Akanksha [Tucks] 1 pad TOP ASDIRECTED PRN Assess Lochia [WOMSER] Per Unit Routine Assess Uterine Involution [WOMSER] Per Unit Routine Breast Pump [WOMSER] Per Unit Routine Peripheral IV Discontinue [OM.PC] Routine 06/06/21 22:57 Cooling Warming Measures [RC] ASDIRECTED Ice Therapy [OM.PC] Per Unit Routine Perineal Care [OM.PC] Per Unit Routine Sitz Bath [OM.PC] Per Unit Routine 06/07/21 05:11 HEMOGLOBIN/HEMATOCRIT,HH [HEME] Timed 06/07/21 Breakfast Regular Diet [DIET] - Assessment Assessment:: 25yo s/p VAVD at 42w2d for non-reassuring heart tones - Plan Plan:: 1. Admit to unit for routine cares 2. No care: labs pending, social work consult placed 3. GBS unknown: GBS negative in prior , per guidelines do not treat, discussed with patient will likely be monitored for 48 hours post- delivery
--- NOTE | 2021-06-07 00:03 | OR ---
SURGEON: Meredith Duran MD DATE OF PROCEDURE: 06/06/2021 PREOPERATIVE DIAGNOSES: 1. A 25-year-old G3, P2-0-0-2, at 42 weeks and 2 days' gestation by 19-week and 6-day ultrasound. 2. Labor. 3. Group B Streptococcus unknown. 4. Non-reassuring heart tones with recurrent late decelerations to the 70s. POSTOPERATIVE DIAGNOSES: 1. A 25-year-old G3, P2-0-0-2, at 42 weeks and 2 days' gestation by 19-week and 6-day ultrasound. 2. Labor. 3. Group B Streptococcus unknown. 4. Non-reassuring heart tones with recurrent late decelerations to the 70s. PRIMARY SURGEON: Meredith Duran MD ANESTHESIA: Epidural. PROCEDURE: Vacuum-assisted vaginal delivery. ESTIMATED BLOOD LOSS: 250 mL. COMPLICATIONS: None. FINDINGS: 1. Live male infant in cephalic presentation. score of 8 and 9 at one and five minutes respectively. Weight 3250 g. 2. Placenta intact with a 3-vessel cord. 3. Perineum intact. INDICATIONS: This is a 25-year-old G3, P2-0-0-2, who presented at 42 weeks and 2 days' gestation complaining of contractions every 10 minutes. Upon presentation, she had no care; however, an ultrasound report from the emergency department was able to be obtained to review gestational age. She was checked and found to be 6 cm dilated. She was admitted to Labor and Delivery for expectant management of post-dates labor. She received an epidural for pain control. She progressed to 10 cm dilated. At this time, heart rate was noted to be in the 90s for 7 minutes. Artificial rupture of membranes occurred with clear fluid noted. The patient began pushing. DESCRIPTION OF PROCEDURE: With pushing, the patient was able to get the fetus to +2 station. During pushing, the heart rate tracing showed decelerations into the 50s to 70s with recovery intermittently to the 130s. Because of this, I recommended a vacuum delivery for the baby. The risks and alternatives of vacuum delivery were reviewed with the patient and she agreed to proceed. The baby's head was confirmed to be in the right occiput anterior position and +2 station. The bladder was drained. The vacuum was placed in the correct placement. With the next contraction, the vacuum was inflated to a pressure of 65 mmHg. Gentle downward pressure was used to bring the head to a +3 station and 1 pop-off occurred. The vacuum was reapplied and inflated to a pressure of 65 mmHg. Over the next contraction, the vacuum was able to deliver the baby's head to a +5 station. Vacuum was deflated and removed, and with maternal pushing efforts, the baby's head delivered atraumatically. The shoulders and remainder of the body were then delivered. The cord was clamped and cut, and the infant was handed off to the awaiting freezer laboratory technician and nurse. Cord blood and cord gases are obtained. The placenta then delivered intact and with 3-vessel cord via the Sierra-Martínez maneuver. The fundus was firm below the umbilicus with minimal bleeding. The perineum was inspected and noted to be hemostatic. The patient tolerated the procedure well. The infant was evaluated by the freezer laboratory technician and is stable in the room with the patient. [id number] / MODL /[id number] DESIREE
[2021-06-07] MEDS: Acetaminophen 500 MG Tab PO PRN ×2 (04:14→12:51)
[2021-06-07] MEDS: Ibuprofen 800 MG Tab PO PRN ×2 (04:15→12:52)
--- NOTE | 2021-06-07 07:15 | PCM.PNPP ---
- General Info Date of Service: 06/07/21 Subjective Update: Patient doing well this morning. Minimal lochia and pain. Ambulating in hallways without dizziness. Functional Status: Reports: Pain Controlled, Tolerating Diet, Ambulating, Urinating - Review of Systems General: Reports: No Symptoms HEENT: Reports: No Symptoms Pulmonary: Reports: No Symptoms Cardiovascular: Reports: No Symptoms Gastrointestinal: Reports: No Symptoms Genitourinary: Reports: No Symptoms Musculoskeletal: Reports: No Symptoms Skin: Reports: No Symptoms Neurological: Reports: No Symptoms Psychiatric: Reports: No Symptoms - Patient Data Vital Signs - Most Recent: Last Vital Signs Temp 36.5 C 06/07/21 04:00 Pulse 61 06/07/21 04:00 Resp 16 06/07/21 04:00 BP 122/73 06/07/21 04:00 Pulse Ox 100 06/07/21 04:00 Weight - Most Recent: 58.967 kg I&O - Last 24 Hours: Intake & Output 06/06/21 06/07/21 06/07/21 22:59 06:59 14:59 Intake Total 3500 Output Total 650 Balance 2850 Lab Results - Last 24 Hours: Laboratory Results - last 24 hr 06/06/21 06/06/21 06/06/21 Range/Units 19:25 19:35 20:30 WBC 6.96 (4.0-11.0) K/uL RBC 4.58 (4.30-5.90) M/uL Hgb 12.1 (12.0-16.0) g/dL Hct 36.6 (36.0-46.0) % MCV 79.9 L (80.0-98.0) fL MCH 26.4 L (27.0-32.0) pg MCHC 33.1 (31.0-37.0) g/dL RDW Std Deviation 41.4 (28.0-62.0) fl RDW Coeff of Gloria 14 (11.0-15.0) % Plt Count 222 (150-400) K/uL MPV 9.90 (7.40-12.00) fL Nucleated RBC % 0.0 /100WBC Nucleated RBCs # 0 K/uL Cord ABG pH (7.18-7.38) Cord ABG Base Excess (-10--2) Cord VBG pH (7.25-7.45) Cord VBG Base Excess (-10--2) Urine Color YELLOW Urine Appearance HAZY Urine pH 8.0 (5.0-8.0) Ur Specific [place] 1.015 (1.001-1.035) Urine Protein TRACE H (NEGATIVE) mg/dL Urine Glucose (UA) NEGATIVE (NEGATIVE) mg/dL Urine Ketones NEGATIVE (NEGATIVE) mg/dL Urine Occult Blood SMALL H (NEGATIVE) Urine Nitrite NEGATIVE (NEGATIVE) Urine Bilirubin NEGATIVE (NEGATIVE) Urine Urobilinogen 1.0 (<2.0) EU/dL Ur Leukocyte Esterase NEGATIVE (NEGATIVE) Urine Opiates Screen NEGATIVE (NEGATIVE) Ur Oxycodone Screen NEGATIVE (NEGATIVE) Urine Methadone Screen NEGATIVE (NEGATIVE) Ur Barbiturates Screen NEGATIVE (NEGATIVE) Ur Phencyclidine Scrn NEGATIVE (NEGATIVE) Ur Amphetamine Screen NEGATIVE (NEGATIVE) U Methamphetamines Scrn NEGATIVE (NEGATIVE) U Benzodiazepines Scrn NEGATIVE (NEGATIVE) U Cocaine Metab Screen NEGATIVE (NEGATIVE) U Marijuana (THC) Screen NEGATIVE (NEGATIVE) Hep Bs Antigen Index (<1.0) INDEX Hep C Ab Index (KASIE) (<0.8) INDEX HIV 1&2 Ag/Ab, 4th Gen (<1.0) INDEX Rubella IgG Ab Index IU/mL SARS-CoV-2 RNA (LUNA) (NEGATIVE) Blood Type Antibody Screen 06/06/21 06/06/21 06/06/21 Range/Units 20:30 20:30 20:36 WBC (4.0-11.0) K/uL RBC (4.30-5.90) M/uL Hgb (12.0-16.0) g/dL Hct (36.0-46.0) % MCV (80.0-98.0) fL MCH (27.0-32.0) pg MCHC (31.0-37.0) g/dL RDW Std Deviation (28.0-62.0) fl RDW Coeff of Gloria (11.0-15.0) % Plt Count (150-400) K/uL MPV (7.40-12.00) fL Nucleated RBC % /100WBC Nucleated RBCs # K/uL Cord ABG pH (7.18-7.38) Cord ABG Base Excess (-10--2) Cord VBG pH (7.25-7.45) Cord VBG Base Excess (-10--2) Urine Color Urine Appearance Urine pH (5.0-8.0) Ur Specific [place] (1.001-1.035) Urine Protein (NEGATIVE) mg/dL Urine Glucose (UA) (NEGATIVE) mg/dL Urine Ketones (NEGATIVE) mg/dL Urine Occult Blood (NEGATIVE) Urine Nitrite (NEGATIVE) Urine Bilirubin (NEGATIVE) Urine Urobilinogen (<2.0) EU/dL Ur Leukocyte Esterase (NEGATIVE) Urine Opiates Screen (NEGATIVE) Ur Oxycodone Screen (NEGATIVE) Urine Methadone Screen (NEGATIVE) Ur Barbiturates Screen (NEGATIVE) Ur Phencyclidine Scrn (NEGATIVE) Ur Amphetamine Screen (NEGATIVE) U Methamphetamines Scrn (NEGATIVE) U Benzodiazepines Scrn (NEGATIVE) U Cocaine Metab Screen (NEGATIVE) U Marijuana (THC) Screen (NEGATIVE) Hep Bs Antigen Index < 0.1 (<1.0) INDEX Hep C Ab Index (KASIE) 0.10 (<0.8) INDEX HIV 1&2 Ag/Ab, 4th Gen < 0.1 (<1.0) INDEX Rubella IgG Ab Index 183.0 IU/mL SARS-CoV-2 RNA (LUNA) NEGATIVE (NEGATIVE) Blood Type A POSITIVE Antibody Screen NEGATIVE 06/06/21 06/07/21 Range/Units 23:00 06:30 WBC (4.0-11.0) K/uL RBC (4.30-5.90) M/uL Hgb 9.5 L (12.0-16.0) g/dL Hct 29.4 L (36.0-46.0) % MCV (80.0-98.0) fL MCH (27.0-32.0) pg MCHC (31.0-37.0) g/dL RDW Std Deviation (28.0-62.0) fl RDW Coeff of Gloria (11.0-15.0) % Plt Count (150-400) K/uL MPV (7.40-12.00) fL Nucleated RBC % /100WBC Nucleated RBCs # K/uL Cord ABG pH 7.225 (7.18-7.38) Cord ABG Base Excess -5 (-10--2) Cord VBG pH 7.255 (7.25-7.45) Cord VBG Base Excess -4 (-10--2) Urine Color Urine Appearance Urine pH (5.0-8.0) Ur Specific [place] (1.001-1.035) Urine Protein (NEGATIVE) mg/dL Urine Glucose (UA) (NEGATIVE) mg/dL Urine Ketones (NEGATIVE) mg/dL Urine Occult Blood (NEGATIVE) Urine Nitrite (NEGATIVE) Urine Bilirubin (NEGATIVE) Urine Urobilinogen (<2.0) EU/dL Ur Leukocyte Esterase (NEGATIVE) Urine Opiates Screen (NEGATIVE) Ur Oxycodone Screen (NEGATIVE) Urine Methadone Screen (NEGATIVE) Ur Barbiturates Screen (NEGATIVE) Ur Phencyclidine Scrn (NEGATIVE) Ur Amphetamine Screen (NEGATIVE) U Methamphetamines Scrn (NEGATIVE) U Benzodiazepines Scrn (NEGATIVE) U Cocaine Metab Screen (NEGATIVE) U Marijuana (THC) Screen (NEGATIVE) Hep Bs Antigen Index (<1.0) INDEX Hep C Ab Index (KASIE) (<0.8) INDEX HIV 1&2 Ag/Ab, 4th Gen (<1.0) INDEX Rubella IgG Ab Index IU/mL SARS-CoV-2 RNA (LUNA) (NEGATIVE) Blood Type Antibody Screen Med Orders - Current: Current Medications Acetaminophen (Acetaminophen 500 Mg Tab) 1,000 mg PO Q6H PRN PRN Reason: Pain (mild 1-3) Last Admin: 06/07/21 04:14 Dose: 1,000 mg Documented by: Benzocaine/Menthol (Benzocaine/Menthol 20%-0.5% [place] 78 Gm Cannister) 78 gm TOP ASDIRECTED PRN PRN Reason: Perineal Comfort Measure Bisacodyl (Bisacodyl 10 Mg Supp) 10 mg RECTAL ONETIME PRN PRN Reason: Constipation Butorphanol Tartrate (Butorphanol 1 Mg/Ml Sdv) 1 mg IVPUSH Q1H PRN PRN Reason: Pain (severe 7-10) Carboprost Tromethamine (Carboprost Tromethamine 250 Mcg/1 Ml Amp) 250 mcg IM ASDIRECTED PRN PRN Reason: Post Hemorrhage Docusate Sodium (Docusate Sodium 100 Mg Cap) 100 mg PO Q12H PRN PRN Reason: Constipation Emollient Ointment (Lanolin 100% Cream 7 Gm Tube) 0 gm TOP ASDIRECTED PRN PRN Reason: Sore Nipples Lactated Ringer's (Ringers, Lactated) 1,000 mls @ 150 mls/hr IV ASDIRECTED [facility] Last Admin: 06/06/21 22:32 Dose: 999 mls/hr Documented by: Oxytocin/Sodium Chloride (Oxytocin 30 Unit In Ns 0.9% 500 Ml Premix) 30 unit in 500 mls @ 999 mls/hr IV TITRATE [facility] Last Admin: 06/06/21 22:45 Dose: 999 mls/hr Documented by: Tranexamic Acid 1,000 mg/ (Sodium Chloride) 110 mls @ 660 mls/hr IV ONETIME PRN PRN Reason: Bleeding Ibuprofen (Ibuprofen 800 Mg Tab) 800 mg PO Q8H PRN PRN Reason: Cramping Last Admin: 06/07/21 04:15 Dose: 800 mg Documented by: Lidocaine HCl (Lidocaine 1% 50 Ml Mdv) 50 ml INJECT ONETIME PRN PRN Reason: Laceration repair Methylergonovine Maleate (Methylergonovine 0.2 Mg/1 Ml Amp) 0.2 mg IM ASDIRECTED PRN PRN Reason: Post Hemorrhage Misoprostol (Misoprostol 200 Mcg Tab) 200 mcg PO ONETIME PRN PRN Reason: Post Hemorrhage Nalbuphine HCl (Nalbuphine 10 Mg/1 Ml Vial) 10 mg IVPUSH Q1H PRN PRN Reason: Pain (severe 7-10) Oxycodone HCl (Oxycodone 5 Mg Tab) 5 mg PO Q2H PRN PRN Reason: Pain (severe 7-10) Sodium Chloride (Sodium Chloride 0.9% 10 Ml Syringe) 10 ml FLUSH ASDIRECTED PRN PRN Reason: Keep Vein Open Sodium Chloride (Sodium Chloride 0.9% 2.5 Ml Syringe) 2.5 ml FLUSH ASDIRECTED PRN PRN Reason: Keep Vein Open Sodium Chloride (Sodium Chloride 0.9% 10 Ml Sdv) 10 ml IV ASDIRECTED PRN PRN Reason: IV Use Sterile Water (Water For Irrigation,Sterile 1,000 Ml Container) 1,000 ml IRR ASDIRECTED PRN PRN Reason: delivery Witch Akanksha (Witch Akanksha Medicated Pads 40/Jar) 1 pad TOP ASDIRECTED PRN PRN Reason: comfort care Discontinued Medications Cefazolin Sodium/Dextrose 2 gm (/ Premix) 50 mls @ 100 mls/hr IV ONETIME STA Stop: 06/06/21 21:29 Cefazolin Sodium/Dextrose (Ancef 1 Gm/50 Ml) 50 mls @ 100 mls/hr IV Q8H BRISEIDA Ropivacaine (Naropin 0.2%) Confirm Administered Dose 200 mls @ as directed .ROUTE .STK-MED ONE Stop: 06/06/21 22:01 Ondansetron HCl (Ondansetron 4 Mg/2 Ml Sdv) Confirm Administered Dose 4 mg .ROUTE .STK-MED ONE Stop: 06/06/21 21:31 Ondansetron HCl (Ondansetron 4 Mg/2 Ml Sdv) 4 mg IVPUSH Q6H STA Stop: 06/06/21 21:37 Last Admin: 06/06/21 21:40 Dose: 4 mg Documented by: - Interaction Infant Disposition, : [place] in Room with Family Feeding: Breastfed Infant; Nursed Well Support Person: Significant Other - Recovery Exam Fundal Tone: Firm Fundal Level: At Umbilicus Fundal Placement: Midline Lochia Amount: Small Lochia Color: Rubra/Red Bladder Status: Voiding Urinary Elimination: Voided - Exam General: Alert, Oriented Neck: Supple Lungs: Normal Respiratory Effort GI/Abdominal Exam: Soft, Non-Tender, No Distention Extremities: Non-Tender, No Pedal Edema Skin: Warm, Dry, Intact Neurological: No New Focal Deficit Psy/Mental Status: Alert, Normal Affect, Normal Mood - Problem List & Annotations (1) Vacuum extraction, delivered, current hospitalization SNOMED Code(s): 492975339 Code(s): O66.5 - ATTEMPTED APPLICATION OF VACUUM EXTRACTOR AND [employer]CE[employer] Status: Acute Current Visit: No - Problem List Review Problem List Initiated/Reviewed/Updated: Yes - My Orders Last 24 Hours: My Active Orders 06/06/21 19:25 CULTURE URINE [MREF] Routine 06/06/21 20:00 Resuscitation Status Routine 06/06/21 20:01 Patient Status [ADT] Routine Up ad Krystin [RC] ASDIRECTED Vital Signs [RC] PER UNIT ROUTINE 06/06/21 20:22 Butorphanol [Stadol] 1 mg IVPUSH Q1H PRN Carboprost Tromethamine [Hemabate DS] 250 mcg IM ASDIRECTED PRN Lidocaine 1% [Xylocaine 1%] 50 ml INJECT ONETIME PRN Methylergonovine [Methergine] 0.2 mg IM ASDIRECTED PRN Nalbuphine [Nubain] 10 mg IVPUSH Q1H PRN Sodium Chloride 0.9% [Normal Saline] 10 ml IV ASDIRECTED PRN Sodium Chloride 0.9% [Saline Flush] 10 ml FLUSH ASDIRECTED PRN Sodium Chloride 0.9% [Saline Flush] 2.5 ml FLUSH ASDIRECTED PRN Tranexamic Acid [Cyklokapron] 1,000 mg Sodium Chloride 0.9% [Normal Saline] 100 ml IV ONETIME Water For Irrigation,Sterile [Sterile Water for Irrigation] 1,000 ml IRR ASDIRECTED PRN miSOPROStoL [Cytotec] 200 mcg PO ONETIME PRN 06/06/21 20:24 Scalp Electrode [WOMSER] Per Unit Routine Peripheral IV Insertion Adult [OM.PC] Routine 06/06/21 20:30 RPR (SYPHILIS SERO) W/ RFLX [REF] Routine Lactated Ringers [Ringers, Lactated] 1,000 ml IV ASDIRECTED Oxytocin/0.9 % Sodium Chloride [Oxytocin 30 Unit in NS 0.9% 500 ML Premix] 30 unit in 500 ml IV TITRATE 06/06/21 20:58 CHLAMYDIA AND GONORRHEA BY TMA Routine GROUP B STREP BY PCR [MOLEC] Routine 06/06/21 22:56 Patient Status [ADT] Routine May Shower [RC] ASDIRECTED Notify Provider Vital Signs [RC] ASDIRECTED Up ad Krystin [RC] ASDIRECTED Vital Signs [RC] PER UNIT ROUTINE Consult to Case Management/Magazine Publisher [CONS] Routine Acetaminophen [Tylenol Extra Strength] 1,000 mg PO Q6H PRN Benzocaine/Menthol [Dermoplast Pain Relief 20%-0.5% [place]] 78 gm TOP ASDIRECTED PRN Docusate Sodium [Colace] 100 mg PO Q12H PRN Ibuprofen [Motrin] 800 mg PO Q8H PRN Lanolin [Lansinoh HPA] See Dose Instructions TOP ASDIRECTED PRN bisacodyL [Dulcolax] 10 mg RECTAL ONETIME PRN oxyCODONE 5 mg PO Q2H PRN witch Akanksha [Tucks] 1 pad TOP ASDIRECTED PRN Assess Lochia [WOMSER] Per Unit Routine Assess Uterine Involution [WOMSER] Per Unit Routine Breast Pump [WOMSER] Per Unit Routine Peripheral IV Discontinue [OM.PC] Routine 06/06/21 22:57 Ice Therapy [OM.PC] Per Unit Routine Perineal Care [OM.PC] Per Unit Routine Sitz Bath [OM.PC] Per Unit Routine 06/07/21 Breakfast Regular Diet [DIET] - Assessment Assessment:: 25yo s/p VAVD at 42w2d for non-reassuring heart tones, PPD#1 - Plan Plan:: 1. Continue routine cares 2. No care: labs normal, social work consult placed 3. GBS unknown: GBS negative in prior , per guidelines do not treat, discussed with patient infant will likely be monitored for 48 hours post- delivery 4. Dispo: Plan discharge home on PPD#2
[2021-06-07] MEDS: oxyCODONE 5 MG Tab PO PRN ×2 (07:59→15:24)
--- NOTE | 2021-06-07 15:12 | PCM48HPAN ---
Post Anesthesia Note - EVALUATION WITHIN 48HRS OF ANESTHETIC Vital Signs in Normal Range: Yes Patient Participated in Evaluation: Yes Respiratory Function Stable: Yes Airway Patent: Yes Cardiovascular Function Stable: Yes Hydration Status Stable: Yes Pain Control Satisfactory: Yes Nausea and Vomiting Control Satisfactory: Yes Mental Status Recovered: Yes Vital Signs: Last Vital Signs Temp 97.3 F 06/07/21 08:12 Pulse 61 06/07/21 08:12 Resp 16 06/07/21 08:12 BP 118/82 06/07/21 08:12 Pulse Ox 97 06/07/21 08:12
--- NOTE | 2021-06-07 16:05 | PCM48HPAN ---
Post Anesthesia Note - EVALUATION WITHIN 48HRS OF ANESTHETIC Vital Signs in Normal Range: Yes Patient Participated in Evaluation: Yes Respiratory Function Stable: Yes Airway Patent: Yes Cardiovascular Function Stable: Yes Hydration Status Stable: Yes Pain Control Satisfactory: Yes Nausea and Vomiting Control Satisfactory: Yes Mental Status Recovered: Yes Vital Signs: Last Vital Signs Temp 36.3 C 06/07/21 08:12 Pulse 61 06/07/21 08:12 Resp 16 06/07/21 08:12 BP 118/82 06/07/21 08:12 Pulse Ox 97 06/07/21 08:12 - COMMENTS/OBSERVATIONS Free Text/Narrative:: Pt states to being up walking with no weakness and no S&S of infection.
--- NOTE | 2021-06-08 08:36 | PCM.PNPP ---
- General Info Date of Service: 06/08/21 Functional Status: Reports: Pain Controlled, Tolerating Diet, Ambulating, Urinating - Review of Systems General: Reports: No Symptoms HEENT: Reports: No Symptoms Pulmonary: Reports: No Symptoms Cardiovascular: Reports: No Symptoms Gastrointestinal: Reports: No Symptoms Genitourinary: Reports: No Symptoms Musculoskeletal: Reports: No Symptoms Skin: Reports: No Symptoms Neurological: Reports: No Symptoms Psychiatric: Reports: No Symptoms - Patient Data Vital Signs - Most Recent: Last Vital Signs Temp 36.4 C 06/08/21 04:00 Pulse 67 06/08/21 04:00 Resp 18 06/08/21 04:00 BP 101/49 L 06/08/21 04:00 Pulse Ox 97 06/08/21 04:00 Weight - Most Recent: 58.967 kg Lab Results - Last 24 Hours: Laboratory Results - last 24 hr 06/07/21 Range/Units 20:20 Urine Opiates Screen POSITIVE (NEGATIVE) Ur Oxycodone Screen POSITIVE (NEGATIVE) Urine Methadone Screen NEGATIVE (NEGATIVE) Ur Barbiturates Screen NEGATIVE (NEGATIVE) Ur Phencyclidine Scrn NEGATIVE (NEGATIVE) Ur Amphetamine Screen NEGATIVE (NEGATIVE) U Methamphetamines Scrn NEGATIVE (NEGATIVE) U Benzodiazepines Scrn NEGATIVE (NEGATIVE) U Cocaine Metab Screen NEGATIVE (NEGATIVE) U Marijuana (THC) Screen NEGATIVE (NEGATIVE) Med Orders - Current: Current Medications Acetaminophen (Acetaminophen 500 Mg Tab) 1,000 mg PO Q6H PRN PRN Reason: Pain (mild 1-3) Last Admin: 06/07/21 12:51 Dose: 1,000 mg Documented by: Benzocaine/Menthol (Benzocaine/Menthol 20%-0.5% [place] 78 Gm Cannister) 78 gm TOP ASDIRECTED PRN PRN Reason: Perineal Comfort Measure Last Admin: 06/07/21 08:01 Dose: 78 gm Documented by: Bisacodyl (Bisacodyl 10 Mg Supp) 10 mg RECTAL ONETIME PRN PRN Reason: Constipation Butorphanol Tartrate (Butorphanol 1 Mg/Ml Sdv) 1 mg IVPUSH Q1H PRN PRN Reason: Pain (severe 7-10) Carboprost Tromethamine (Carboprost Tromethamine 250 Mcg/1 Ml Amp) 250 mcg IM ASDIRECTED PRN PRN Reason: Post Hemorrhage Docusate Sodium (Docusate Sodium 100 Mg Cap) 100 mg PO Q12H PRN PRN Reason: Constipation Emollient Ointment (Lanolin 100% Cream 7 Gm Tube) 0 gm TOP ASDIRECTED PRN PRN Reason: Sore Nipples Ephedrine Sulfate (Ephedrine 50 Mg/Ml Sdv) 10 mg IVPUSH Q1M PRN PRN Reason: Hypotension Lactated Ringer's (Ringers, Lactated) 1,000 mls @ 150 mls/hr IV ASDIRECTED [facility] Last Admin: 06/06/21 22:32 Dose: 999 mls/hr Documented by: Oxytocin/Sodium Chloride (Oxytocin 30 Unit In Ns 0.9% 500 Ml Premix) 30 unit in 500 mls @ 999 mls/hr IV TITRATE [facility] Last Admin: 06/06/21 22:45 Dose: 999 mls/hr Documented by: Tranexamic Acid 1,000 mg/ (Sodium Chloride) 110 mls @ 660 mls/hr IV ONETIME PRN PRN Reason: Bleeding Ibuprofen (Ibuprofen 800 Mg Tab) 800 mg PO Q8H PRN PRN Reason: Cramping Last Admin: 06/07/21 12:52 Dose: 800 mg Documented by: Lidocaine HCl (Lidocaine 1% 50 Ml Mdv) 50 ml INJECT ONETIME PRN PRN Reason: Laceration repair Methylergonovine Maleate (Methylergonovine 0.2 Mg/1 Ml Amp) 0.2 mg IM ASDIRECTED PRN PRN Reason: Post Hemorrhage Miscellaneous Medication (Phenylephrine Hcl In 0.9% Nacl 1 Mg/10 Ml Syringe) 0.1 mg IVPUSH Q1M PRN PRN Reason: Hypotension Misoprostol (Misoprostol 200 Mcg Tab) 200 mcg PO ONETIME PRN PRN Reason: Post Hemorrhage Nalbuphine HCl (Nalbuphine 10 Mg/1 Ml Vial) 10 mg IVPUSH Q1H PRN PRN Reason: Pain (severe 7-10) Oxycodone HCl (Oxycodone 5 Mg Tab) 5 mg PO Q2H PRN PRN Reason: Pain (severe 7-10) Last Admin: 06/07/21 15:24 Dose: 5 mg Documented by: Ropivacaine (Ropivacaine 0.2% 2mg/Ml 200 Ml Bag) 400 mg EPIDUR ASDIRECTED [facility] Sodium Chloride (Sodium Chloride 0.9% 10 Ml Syringe) 10 ml FLUSH ASDIRECTED PRN PRN Reason: Keep Vein Open Sodium Chloride (Sodium Chloride 0.9% 2.5 Ml Syringe) 2.5 ml FLUSH ASDIRECTED PRN PRN Reason: Keep Vein Open Sodium Chloride (Sodium Chloride 0.9% 10 Ml Sdv) 10 ml IV ASDIRECTED PRN PRN Reason: IV Use Sterile Water (Water For Irrigation,Sterile 1,000 Ml Container) 1,000 ml IRR ASDIRECTED PRN PRN Reason: delivery Witch Akanksha (Witch Akanksha Medicated Pads 40/Jar) 1 pad TOP ASDIRECTED PRN PRN Reason: comfort care Last Admin: 06/07/21 08:01 Dose: 1 pad Documented by: Discontinued Medications Cefazolin Sodium/Dextrose 2 gm (/ Premix) 50 mls @ 100 mls/hr IV ONETIME STA Stop: 06/06/21 21:29 Cefazolin Sodium/Dextrose (Ancef 1 Gm/50 Ml) 50 mls @ 100 mls/hr IV Q8H BRISEIDA Ropivacaine (Naropin 0.2%) Confirm Administered Dose 200 mls @ as directed .ROUTE .STK-MED ONE Stop: 06/06/21 22:01 Ondansetron HCl (Ondansetron 4 Mg/2 Ml Sdv) Confirm Administered Dose 4 mg .ROUTE .STK-MED ONE Stop: 06/06/21 21:31 Ondansetron HCl (Ondansetron 4 Mg/2 Ml Sdv) 4 mg IVPUSH Q6H STA Stop: 06/06/21 21:37 Last Admin: 06/06/21 21:40 Dose: 4 mg Documented by: - Infant Interaction Infant Disposition, : to Nursery Feeding: Bottle Fed Infant Support Person: Significant Other - Recovery Exam Fundal Tone: Firm Fundal Level: 1 Fingerbreadths Below Umbilicus Fundal Placement: Midline Lochia Amount: Scant Lochia Color: Rubra/Red Bladder Status: Voiding Urinary Elimination: Voided - Exam General: Alert, Oriented Neck: Supple Lungs: Normal Respiratory Effort GI/Abdominal Exam: Soft, Non-Tender, No Distention Extremities: Non-Tender, No Pedal Edema Skin: Warm, Dry, Intact Neurological: No New Focal Deficit Psy/Mental Status: Alert, Normal Affect, Normal Mood - Problem List & Annotations (1) Vacuum extraction, delivered, current hospitalization SNOMED Code(s): 763848960 Code(s): O66.5 - ATTEMPTED APPLICATION OF VACUUM EXTRACTOR AND FORCEPS Status: Acute Current Visit: No - Problem List Review Problem List Initiated/Reviewed/Updated: Yes - My Orders Last 24 Hours: My Active Orders 06/08/21 08:35 Ready for Discharge [RC] PER UNIT ROUTINE - Assessment Assessment:: 25yo s/p VAVD at 42w2d for non-reassuring heart tones, PPD#2 - Plan Plan:: 1. Continue routine cares 2. No care: labs normal, social work consult placed 3. GBS unknown: GBS negative in prior , per guidelines do not treat, discussed with patient infant will likely be monitored for 48 hours post- delivery 4. Dispo: Plan discharge home today. Reviewed discharge instructions/precautions. All questions answered.
[2021-06-09 10:02] LABS: C.TRACHOMATIS BY TMA Negative (Negative); N.GONORRHOEAE BY TMA Negative (Negative)
== END 2021-06-08 12:35 | disposition home or self-care (01) | DRG 807 ==
LOC: MW.OB 19:40 → MW.OBCHECK 19:40 → MW.OB 19:45 → MW.OBCHECK 20:01 → OBSVTOIN 22:40 → MW.OB 06-07 03:23
PROVIDERS: ADMIT Obstetrics & Gynecology; ATTEND Obstetrics & Gynecology
PROC: 10D07Z6 Extraction of Products of Conception, Vacuum, Via Natural or Artificial Opening (ICD-10-PCS; principal; 2021-06-06)
PROC: 10907ZC Drainage of Amniotic Fluid, Therapeutic from Products of Conception, Via Natural or Artificial Opening (ICD-10-PCS; 2021-06-06)
PROC: 3E0R3BZ Introduction of Anesthetic Agent into Spinal Canal, Percutaneous Approach (ICD-10-PCS; 2021-06-06)
DX: O48.0 Post-term pregnancy (principal); Z37.0 Single live birth; O77.0 Labor and delivery complicated by meconium in amniotic fluid; O99.334 Smoking (tobacco) complicating childbirth; F17.210 Nicotine dependence, cigarettes, uncomplicated; O99.62 Diseases of the digestive system complicating childbirth; K21.9 Gastro-esophageal reflux disease without esophagitis; Z20.822 Contact with and (suspected) exposure to COVID-19; Z3A.42 42 weeks gestation of pregnancy
CPT/HCPCS: 01967; 36415; 51701; 59025; 59409; 80305-QW; 81003; 82803; 85014; 85018; 85027; 86592; 86762; 86803; 86850; 86900; 86901; 87086; 87340; 87389; 87491; 87591; A9270-GY; J2405; J2590; J2795; J7120; U0002

== ENCOUNTER 2022-02-17 09:21 | Emergency (ER) | payer MEDICAID ==
[2022-02-17 10:34] LABS: BLOOD UREA NITROGEN,BUN 14 mg/dL (7.0-18.0); CARBON DIOXIDE,CO2 28.3 mmol/L (21.0-32.0); CHLORIDE,CL 106 mmol/L (98-107); GLUCOSE RANDOM 96 mg/dL (74-106); POTASSIUM,K 3.7 mmol/L (3.5-5.1); SODIUM,NA 142 mmol/L (136-145)
[2022-02-17 10:35] LABS: ESTIMATED GFR 104 mL/min (>60)
== END 2022-02-17 11:37 ==
LOC: MW.ED 09:21
DX: F11.10 Opioid abuse, uncomplicated (principal); F17.210 Nicotine dependence, cigarettes, uncomplicated; Z20.822 Contact with and (suspected) exposure to COVID-19
CPT/HCPCS: 36415; 80053; 80305-QW; 80307; 81025; 85025; 99283; U0002